=== PATIENT | female | born 1965 | race African-American/Black ===

== ENCOUNTER 2016-11-01 12:44 | Inpatient (IN) | payer MEDICAID ==
[2016-11-01] MEDS ORDERED: NS 1000 ML 1,000 ML ONE (12:51)
[2016-11-01 12:53] VITALS: BMI 23.9
--- NOTE | 2016-11-01 12:55 | DR.SEIZA ---
HPI - Time Seen Time seen: 12:47 - Primary Care Physician Primary Care Physician: Avril - Complaints Chief Complaint Doctors Comments: Patient was witnessed having a tonic clonic seizure lasting about five minutes. She was foaming at the mouth. There was no history of trauma or history of seizure. Patient is HIV positive by history . Patiente reports that she has had seizure in the the past but stopped taking medication becasue she did not think she needed it. PMH - PMH Past Medical History: Depression, GERD, Hypertension, PUD Past Surgical History: Yes Surgical History: Abdominal Surgery, - Family History Family Medical History: Diabetes Mellitus, Cancer, Hypertension - Social History Do you use any recreational Drugs:: No ROS - Review of Systems Constitutional: No Symptoms Reported Eyes: No Symptoms Reported ENTM: No Symptoms Reported Respiratoy: No Symptoms Reported Cardiovascular: No Symptoms Reported Gastrointestinal/Abdominal: No Symptoms Reported Genitourinary: No Symptoms Reported Neurological: No Symptoms Reported Musculoskeletal: No Symptoms Reported Integumentary: No Symptoms Reported, Dryness Hematologic/Lymphatic: No Symptoms Reported Endocrine: No Symptoms Reported Psychiatric: No Symptoms Reported All Other Systems: Reviewed and Negative PE - Vital Signs Vitals: Temperature 97.7 F Pulse Rate 129 Respiratory Rate 20 Blood Pressure 214/93 O2 Sat by Pulse Oximetry 99 - General Limitations: No Limitations General Appearance: In No Apparent Distress - Head Head Exam: Normal Inspection, Atraumatic Head Exam Physical: negative: Contusion, Conteh's Sign, Tenderness of Temporal Artery, CSF Rhinorrhea, CSF Otorrhea - Eyes Eye exam: Normal Appearance, PERRL, EOMI Eyelids: Normal Inspection: Bilateral Pupils: Regular, Round: Bilateral Sclera/Conjunctival: Normal Inspection: Bilateral Anterior Chamber: Normal Inspection: Bilateral - ENT ENT Exam: Normal Exam Mouth Exam: Normal Inspection. negative: Drooling, Trismus, Lip Swelling - Neck Neck Exam: Normal Inspection, Full ROM - Chest Chest Inspection: Normal Inspection - Respiratory Respiratory Exam: Normal Lung Sounds Bilat Respiratory Exam: Bilateral Clear to Auscultation - Cardiovascular Cardiovascular Exam: Regular Rate, Normal Rhythm - Abdominal Exam Abdominal Exam: Normal Inspection Abdominal Tenderness: negative: RUQ, RLQ, LUQ, LLQ, Epigastrium, Suprapubic, Diffuse, Mild, Moderate, Severe, Other - Extremities Extremities Exam: Normal Inspection, Full ROM - Back Back Exam: Normal Inspection - Neurologic Neurological Exam: Alert, Oriented X3, CN II-XII Intact Patient Oriented To: Place Speech: Expressive Aphasia Cranial Nerve Exam: EOM Function (II, III, IV, ): Normal Motor Strength - LUE: 2/5 Sensory Exam Upper Extremity: Light Touch: Normal Sensory Exam Lower Extremity: Light Touch: Normal DTR: achilles tendon (L): 3+ - Psychiatric Psychiatric Exam: Normal Affect, Normal Mood - Skin Skin Exam: Warm, Dry, Intact Course - Reevaluation 1st: Improved - Consultation Called: 14:05 (Dr Mackenzie advised admit seizure precaution, medicate) ROR - Labs Reviewed Laboratory Results Reviewed?: Yes (low potassium) Result Diagrams: 11/01/16 13:00 11/01/16 13:00 Laboratory: WBC 6.7 X10^3/uL (3.6-10.0) 11/01/16 13:00 RBC 4.46 X10^6/uL (3.5-5.4) 11/01/16 13:00 Hgb 8.4 g/dL (12.0-16.0) L 11/01/16 13:00 Hct 27.3 % (36.0-47.0) L 11/01/16 13:00 MCV 61.2 fL (80.0-100.0) L 11/01/16 13:00 MCH 18.7 pg (27.0-34.0) L 11/01/16 13:00 MCHC 30.6 g/dL (33.0-35.0) L 11/01/16 13:00 RDW 19.2 % (11.6-16.5) H 11/01/16 13:00 Plt Count 284 X10^3/uL (150.0-450.0) 11/01/16 13:00 Plt Count Comment Adequate (ADEQUATE) 11/01/16 13:00 MPV 10.8 fL (7.4-11.0) 11/01/16 13:00 Neut % 40.2 % (42.0-75.0) L 11/01/16 13:00 Lymph % 54.9 % (21.0-51.0) H 11/01/16 13:00 [place] % 2.7 % (0.0-13.0) 11/01/16 13:00 Eos % 0.5 % (0.9-2.9) L 11/01/16 13:00 Baso % 1.7 % (0.2-1.0) H 11/01/16 13:00 Neut # 2.7 x10^3/uL (2.2-4.8) 11/01/16 13:00 Lymph # 3.7 X10^3/uL (1.3-2.9) H 11/01/16 13:00 [place] # 0.2 x10^3/uL (0.3-0.8) L 11/01/16 13:00 Eos # 0.0 x10^3/uL (0.0-0.2) 11/01/16 13:00 Baso # 0.1 X10^3/uL (0.0-0.1) 11/01/16 13:00 Absolute Nucleated RBC 0.0 /100WBC 11/01/16 13:00 Total Counted 100 11/01/16 13:00 Neutrophils % (Manual) 59 % (39-76) 11/01/16 13:00 Lymphocytes % (Manual) 39 % (13-43) 11/01/16 13:00 Monocytes % (Manual) 2 % (4-9) L 11/01/16 13:00 Plt Morphology Comment Normal (NORMAL) 11/01/16 13:00 RBC Morphology Abnormal (NORMAL) A 11/01/16 13:00 Hypochromasia 3+ A 11/01/16 13:00 Microcytosis 2+ A 11/01/16 13:00 INR Target Range - 11/01/16 13:08 INR 1.04 (0.8-1.3) 11/01/16 13:08 PTT 25.0 SECONDS (22.9-36.5) 11/01/16 13:08 PTT Comment - 11/01/16 13:08 Sodium 140 mmol/L (136-145) 11/01/16 13:00 Corrected Sodium 142 mmol/L (136-145) 11/01/16 13:00 Potassium 3.0 mmol/L (3.5-5.1) L* 11/01/16 13:00 Chloride 102 mmol/L (98-107) 11/01/16 13:00 Carbon Dioxide 25.2 mmol/L (21-32) 11/01/16 13:00 BUN 14 mg/dL (7-18) 11/01/16 13:00 Creatinine 0.71 mg/dL (0.55-1.02) 11/01/16 13:00 Est GFR (MDRD) Af Amer > 60 (>60) 11/01/16 13:00 Est GFR (MDRD) Non-Af > 60 (>60) 11/01/16 13:00 Glucose 172 mg/dL (65-99) H 11/01/16 13:00 Calcium 8.9 mg/dL (8.5-10.1) 11/01/16 13:00 Corrected Calcium TNP 11/01/16 13:00 Phosphorus 3.6 mg/dL (2.6-4.7) 11/01/16 13:00 Magnesium 1.5 mg/dL (1.7-2.9) L 11/01/16 13:00 Total Bilirubin 0.10 mg/dL (0.2-1.0) L 11/01/16 13:00 AST 31 Units/L (15-37) 11/01/16 13:00 ALT 32 Units/L (12-78) 11/01/16 13:00 Alkaline Phosphatase 75 Units/L (46-116) 11/01/16 13:00 Creatine Kinase 640 Units/L (26-192) H 11/01/16 13:00 CK-MB (CK-2) 6.9 ng/mL (0-4.0) H* 11/01/16 13:00 CK/CKMB % Calc 1.1 % (<4) 11/01/16 13:00 Troponin I < 0.02 ng/mL (0-1.5) 11/01/16 13:00 C-Reactive Protein 1.70 mg/L (0-3.0) 11/01/16 13:00 Total Protein 8.2 g/dL (6.4-8.2) 11/01/16 13:00 Albumin 3.9 g/dL (3.4-5.0) 11/01/16 13:00 Globulin 4.3 g/dL (2.5-4.5) 11/01/16 13:00 Albumin/Globulin Ratio 0.9 Ratio (1.1-2.1) L 11/01/16 13:00 Specimen Type Clean catch urine 11/01/16 14:53 Urine Color Yellow (YELLOW) 11/01/16 14:53 Urine Appearance Clear (CLEAR) 11/01/16 14:53 Urine pH 6.0 (5.0 - 8.0) 11/01/16 14:53 Ur Specific [place] 1.020 (1.000-1.030) 11/01/16 14:53 Urine Protein 1+ (NEGATIVE) 11/01/16 14:53 Urine Glucose (UA) Negative (NEGATIVE) 11/01/16 14:53 Urine Ketones Negative (NEGATIVE) 11/01/16 14:53 Urine Occult Blood Negative (NEGATIVE) 11/01/16 14:53 Urine Nitrite Negative (NEGATIVE) 11/01/16 14:53 Urine Bilirubin Negative (NEGATIVE) 11/01/16 14:53 Urine Urobilinogen Normal (NORMAL) 11/01/16 14:53 Ur Leukocyte Esterase Negative (NEGATIVE) 11/01/16 14:53 Urine RBC None seen /HPF (NEGATIVE) 11/01/16 14:53 Urine WBC Rare /HPF (NEGATIVE) 11/01/16 14:53 Ur Squamous Epith Cells Negative /HPF (NEGATIVE) 11/01/16 14:53 Urine Bacteria Negative /HPF (NEGATIVE) 11/01/16 14:53 Ur Culture Indicated? No/not indicated 11/01/16 14:53 - XRAY XRAY Interpreted by: Radiologist (CT Brain: no evidence of pathology, x ray forearm negative, Chest negative) - Diagnosis Discharge Problem: Seizure disorder - Discharge Plan Condition: Stable - Follow ups/Referrals Follow ups/Referrals: [facility],None [Primary Care Provider] - 3 days - Instructions
[2016-11-01] MEDS ORDERED: NS 1000 ML 1,000 ML IV SCH (13:00)
--- NOTE | 2016-11-01 13:00 | CT ---
Indication: Seizures, stroke protocol Exam: CT head without contrast . Comparison: 2012 Findings: The ventricles are slightly enlarged and there is mild prominence of the cortical sulci. N o intracranial hemorrhage or edema is seen. There is no extra-axial fluid collection or mass. No foc al low-density lesions are seen. The bones are intact. Impression: Mild atrophy with no acute intracranial abnormality seen. Reported By:
[2016-11-01 13:17] LABS: BASOPHILS # (AUTO) 0.1 X10^3/uL (0.0-0.1); BASOPHILS % (AUTO) 1.7 % (0.2-1.0); MONOCYTES # (AUTO) 0.2 x10^3/uL (0.3-0.8)
[2016-11-01 13:23] LABS: MAGNESIUM 1.5 mg/dL (1.7-2.9); PHOSPHORUS 3.6 mg/dL (2.6-4.7)
[2016-11-01 13:25] LABS: EOSINOPHILS % (AUTO) 0.5 % (0.9-2.9); HEMATOCRIT 27.3 % (36.0-47.0); HEMOGLOBIN 8.4 g/dL (12.0-16.0); LYMPHOCYTES # (AUTO) 3.7 X10^3/uL (1.3-2.9); LYMPHOCYTES % (AUTO) 54.9 % (21.0-51.0); MEAN CORPUSCULAR HEMOGLOBIN 18.7 pg (27.0-34.0); MEAN CORPUSCULAR HGB CONC 30.6 g/dL (33.0-35.0); MEAN CORPUSCULAR VOLUME 61.2 fL (80.0-100.0); MEAN PLATELET VOLUME 10.8 fL (7.4-11.0); MONOCYTES % (AUTO) 2.7 % (0.0-13.0); NEUTROPHILS # (AUTO) 2.7 x10^3/uL (2.2-4.8); NEUTROPHILS % (AUTO) 40.2 % (42.0-75.0); PLATELET COUNT 284 X10^3/uL (150.0-450.0); RED BLOOD COUNT 4.46 X10^6/uL (3.5-5.4); RED CELL DISTRIBUTION WIDTH 19.2 % (11.6-16.5); WHITE BLOOD COUNT 6.7 X10^3/uL (3.6-10.0)
[2016-11-01 13:43] LABS: HYPOCHROMASIA 3+; MICROCYTOSIS 2+; PLATELET MORPHOLOGY COMMENT NORMAL (NORMAL)
--- NOTE | 2016-11-01 13:50 | RAD ---
HISTORY: Seizure. Study: Chest one view Comparison: October 14, 2016. Findings: The trachea is midline. The cardiac silhouette is unremarkable. The lungs are clear without focal infiltrate or effusion. The bony thorax is unremarkable. IMPRESSION: 1. No acute cardiopulmonary disease. Reported By:
[2016-11-01 14:00] LABS: ALANINE AMINOTRANSFERASE 32 Units/L (12-78); ALBUMIN 3.9 g/dL (3.4-5.0); ALKALINE PHOSPHATASE 75 Units/L (46-116); ASPARTATE AMINO TRANSFERASE 31 Units/L (15-37); BLOOD UREA NITROGEN 14 mg/dL (7-18); CALCIUM 8.9 mg/dL (8.5-10.1); CARBON DIOXIDE 25.2 mmol/L (21-32); CHLORIDE 102 mmol/L (98-107); CKMB % 1.1 % (<4); COR NA(FOR HYPERGLY) 142 mmol/L (136-145); CREATINE KINASE 640 Units/L (26-192); CREATININE 0.71 mg/dL (0.55-1.02); GLUCOSE 172 mg/dL (65-99); SODIUM 140 mmol/L (136-145); TOTAL PROTEIN 8.2 g/dL (6.4-8.2); TROPONIN I < 0.02 ng/mL (0-1.5); eGFR BLACK RACES > 60 (>60); eGFR NON BLACK RACES > 60 (>60)
[2016-11-01 14:05] LABS: CREATINE KINASE MB 6.9 ng/mL (0-4.0)
[2016-11-01] MEDS ORDERED: CEREBYX INJ IVP ONE (15:19)
[2016-11-01 15:28] LABS: BILIRUBIN,URINE NEGATIVE (NEGATIVE); BLOOD/HEMOGLOBIN,URINE NEGATIVE (NEGATIVE); GLUCOSE, URINE NEGATIVE (NEGATIVE); KETONES,URINE NEGATIVE (NEGATIVE); LEUKOCYTE ESTERASE ,URINE NEGATIVE (NEGATIVE); NITRITES,URINE NEGATIVE (NEGATIVE); PROTEIN,URINE 1+ (NEGATIVE); UROBILINOGEN,URINE NORMAL (NORMAL)
[2016-11-01 15:33] LABS: APPEARANCE,URINE CLEAR (CLEAR); COLOR,URINE YELLOW (YELLOW)
--- NOTE | 2016-11-01 15:34 | RAD ---
History: Right forearm pain after fall Study: Two views right forearm Findings: There is no fracture or dislocation or periosteum reaction. There is severe osteophytes ab out the 1st metacarpal-carpal joint. Impression: No evidence for fracture Reported By:
[2016-11-01 15:35] LABS: BACTERIA,URINE NEGATIVE /HPF (NEGATIVE); RBC,URINE NONE SEEN /HPF (NEGATIVE); SQUAMOUS EPITHELIAL CELL,UR NEGATIVE /HPF (NEGATIVE)
[2016-11-01] MEDS ORDERED: TORADOL 30 MG VIAL ONE (15:38)
[2016-11-01] MEDS ORDERED: CEREBYX INJ ONE ×2 (15:39)
[2016-11-01] MEDS ORDERED: NS 100 ML IV 100 ML IV ONE (15:40)
[2016-11-01] MEDS: K-LYTE EFFERVESCENT PO SCH (15:51)
[2016-11-01] MEDS ORDERED: TORADOL 30 MG VIAL IVP ONE (15:52)
[2016-11-01] MEDS ORDERED: ATIVAN INJ 2 MG VIAL IVP PRN (16:09)
[2016-11-01] MEDS: NS 1000 ML 1,000 ML with POTASSIUM CHLORIDE INJ 10 MEQ VIAL 10 MEQ IV SCH ×2 (16:51)
[2016-11-01] MEDS: NORCO 5/325 MG TAB PO PRN (19:11)
[2016-11-01] MEDS: KEPPRA TAB 500 MG PO SCH (20:30)
[2016-11-01] MEDS: DILANTIN CAP 100 MG EXT REL PO SCH (20:30)
[2016-11-02] MEDS: NS 1000 ML 1,000 ML with POTASSIUM CHLORIDE INJ 10 MEQ VIAL 10 MEQ IV SCH ×6 (01:00→16:02)
[2016-11-02] MEDS: NORCO 5/325 MG TAB PO PRN ×2 (01:00→18:38)
[2016-11-02 05:34] LABS: ALANINE AMINOTRANSFERASE 28 Units/L (12-78); ALKALINE PHOSPHATASE 63 Units/L (46-116); ASPARTATE AMINO TRANSFERASE 24 Units/L (15-37); BLOOD UREA NITROGEN 7 mg/dL (7-18); CALCIUM 8.1 mg/dL (8.5-10.1); CARBON DIOXIDE 26.3 mmol/L (21-32); CHLORIDE 108 mmol/L (98-107); COR CA(FOR HYPOALB) 8.9 mg/dL (8.5-10.1); CREATININE 0.51 mg/dL (0.55-1.02); GLUCOSE 98 mg/dL (65-99); SODIUM 144 mmol/L (136-145); TOTAL PROTEIN 6.6 g/dL (6.4-8.2); eGFR BLACK RACES > 60 (>60); eGFR NON BLACK RACES > 60 (>60)
[2016-11-02 05:42] LABS: BASOPHILS % (AUTO) 0.5 % (0.2-1.0); EOSINOPHILS # (AUTO) 0.1 x10^3/uL (0.0-0.2); EOSINOPHILS % (AUTO) 0.6 % (0.9-2.9); HEMOGLOBIN 7.1 g/dL (12.0-16.0); LYMPHOCYTES # (AUTO) 2.1 X10^3/uL (1.3-2.9); LYMPHOCYTES % (AUTO) 23.1 % (21.0-51.0); MEAN CORPUSCULAR HEMOGLOBIN 19.3 pg (27.0-34.0); MEAN CORPUSCULAR HGB CONC 30.9 g/dL (33.0-35.0); MEAN CORPUSCULAR VOLUME 62.4 fL (80.0-100.0); MEAN PLATELET VOLUME 10.7 fL (7.4-11.0); MONOCYTES # (AUTO) 0.4 x10^3/uL (0.3-0.8); NEUTROPHILS # (AUTO) 6.3 x10^3/uL (2.2-4.8); NEUTROPHILS % (AUTO) 70.8 % (42.0-75.0); PLATELET COUNT 222 X10^3/uL (150.0-450.0); RED BLOOD COUNT 3.68 X10^6/uL (3.5-5.4); RED CELL DISTRIBUTION WIDTH 18.8 % (11.6-16.5); WHITE BLOOD COUNT 8.9 X10^3/uL (3.6-10.0)
[2016-11-02 05:59] LABS: ANISOCYTOSIS 1+; HYPOCHROMASIA 3+; MICROCYTOSIS 2+; PLATELET MORPHOLOGY COMMENT NORMAL (NORMAL)
[2016-11-02] MEDS ORDERED: TYLENOL 325 MG TAB PO PRN (09:05)
[2016-11-02] MEDS ORDERED: BENADRYL INJ 50 MG VIAL IV PRN (09:06)
[2016-11-02] MEDS: KEPPRA TAB 500 MG PO SCH ×2 (10:43→20:47)
[2016-11-02] MEDS: K-LYTE EFFERVESCENT PO SCH (10:43)
[2016-11-02] MEDS ORDERED: NS 500 ML IV 500 ML IV ONE (15:05)
[2016-11-02] MEDS: LASIX IVP PRN ×2 (18:38→22:34)
[2016-11-02] MEDS: DILANTIN CAP 100 MG EXT REL PO SCH (20:47)
[2016-11-03] MEDS ORDERED: NS 500 ML IV 500 ML IV ONE (00:13)
[2016-11-03] MEDS: NS 1000 ML 1,000 ML with POTASSIUM CHLORIDE INJ 10 MEQ VIAL 10 MEQ IV SCH ×6 (00:29→16:46)
[2016-11-03 05:21] LABS: BLOOD UREA NITROGEN 8 mg/dL (7-18); CALCIUM 8.3 mg/dL (8.5-10.1); CARBON DIOXIDE 29.7 mmol/L (21-32); CHLORIDE 105 mmol/L (98-107); CREATININE 0.62 mg/dL (0.55-1.02); GLUCOSE 94 mg/dL (65-99); SODIUM 145 mmol/L (136-145); eGFR BLACK RACES > 60 (>60); eGFR NON BLACK RACES > 60 (>60)
[2016-11-03 05:29] LABS: BASOPHILS % (AUTO) 0.4 % (0.2-1.0); EOSINOPHILS # (AUTO) 0.1 x10^3/uL (0.0-0.2); EOSINOPHILS % (AUTO) 1.2 % (0.9-2.9); HEMATOCRIT 39.7 % (36.0-47.0); LYMPHOCYTES # (AUTO) 2.6 X10^3/uL (1.3-2.9); MEAN CORPUSCULAR HEMOGLOBIN 22.8 pg (27.0-34.0); MEAN CORPUSCULAR HGB CONC 32.6 g/dL (33.0-35.0); MEAN CORPUSCULAR VOLUME 69.7 fL (80.0-100.0); MEAN PLATELET VOLUME 10.3 fL (7.4-11.0); MONOCYTES # (AUTO) 0.5 x10^3/uL (0.3-0.8); MONOCYTES % (AUTO) 5.6 % (0.0-13.0); NEUTROPHILS # (AUTO) 5.4 x10^3/uL (2.2-4.8); NEUTROPHILS % (AUTO) 62.8 % (42.0-75.0); PLATELET COUNT 225 X10^3/uL (150.0-450.0); WHITE BLOOD COUNT 8.7 X10^3/uL (3.6-10.0)
[2016-11-03 05:57] LABS: PLATELET MORPHOLOGY COMMENT NORMAL (NORMAL)
[2016-11-03 05:58] LABS: ANISOCYTOSIS 3+; HYPOCHROMASIA 2+; MICROCYTOSIS 1+
[2016-11-03] MEDS: K-LYTE EFFERVESCENT PO SCH (08:17)
[2016-11-03] MEDS: KEPPRA TAB 500 MG PO SCH (08:18)
--- NOTE | 2016-11-03 13:02 | MRI ---
STUDY: MRI OF THE BRAIN WITHOUT AND WITH GADOLINIUM HISTORY: New onset seizures. Technique: Multiplanar multi-sequence MRI of the brain was obtained utilizing standard departmental protocol. Sagittal and axial T1, axial T2, FLAIR, diffusion (DWI/ADC) images through the brain were performed. Coronal whole brain T1, coronal T2 FLAIR and T2 FSE images the temporal lobes were also p erformed. 12 cc of Omniscan was administered intravenously without reported complication following acquisition of informed written consent. Post gadolinium axial and coronal T1 weighted images were also perform ed and reviewed. Comparison: None. Findings: Pre gadolinium brain: The sulci, cisterns and ventricles are age appropriate. There are a few scatte red foci of T2 prolongation in the periventricular and subcortical white matter of both hemispheres. This is a nonspecific finding which likely represents mild microangiopathic change in a patient of this age. There is no evidence of acute territorial infarction, hemorrhage, mass, mass effect, or midline shif t. There are no abnormal intra-axial or extra-axial fluid collections. The hippocampal heads are nor mal in size, morphology, and signal intensity. There is no evidence of chapin matter heterotopia or co rtical dysplasia. The major intracranial vascular flow voids appear intact. The left vertebral artery is dominant. Post gadolinium brain: Following the uneventful administration of intravenous gadolinium, there is n o evidence of abnormal parenchymal or leptomeningeal enhancement. IMPRESSION: 1. No evidence of acute intracranial abnormality. No structural abnormalities are identified which might explain the patient's seizure. 2. Nonspecific white matter change. Reported By:
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
[2016-11-03 16:59] VITALS: BP 146/76
== END 2016-11-03 17:15 | disposition home or self-care (01) | DRG 100 ==
LOC: ER 12:47 → MED/SURG 16:00 → OBSVTOIN 11-02 09:00
PROVIDERS: ADMIT Internal Medicine; ATTEND Internal Medicine
PROC: 30233N1 Transfusion of Nonautologous Red Blood Cells into Peripheral Vein, Percutaneous Approach (ICD-10-PCS; principal; 2016-11-02)
PROC: 30233N1 Transfusion of Nonautologous Red Blood Cells into Peripheral Vein, Percutaneous Approach (ICD-10-PCS; 2016-11-02)
PROC: 30233N1 Transfusion of Nonautologous Red Blood Cells into Peripheral Vein, Percutaneous Approach (ICD-10-PCS; 2016-11-03)
DX: G40.802 Other epilepsy, not intractable, without status epilepticus (principal); B20 Human immunodeficiency virus [HIV] disease; K21.9 Gastro-esophageal reflux disease without esophagitis; I10 Essential (primary) hypertension; R47.01 Aphasia; Z21 Asymptomatic human immunodeficiency virus [HIV] infection status; D63.8 Anemia in other chronic diseases classified elsewhere; F32.89 Other specified depressive episodes
CPT/HCPCS: 36415; 70450; 70553; 71010; 73090; 80048; 80053; 81001; 82270; 82550; 82553; 82607; 82728; 82746; 83540; 83735; 84100; 84466; 84484; 85025; 85610; 85730; 86140; 86361; 86850; 86900; 86901; 86920; 86921; 86922; 87536; 93005; 93010; 94760; 96365; 96367; 96374; 96375; 99284; A4216; A4222; P9016; Q2009; S0078; G0378; J1200; J1885; J1940; J3480

== ENCOUNTER → 2016-12-21 | Outpatient (CLI) | payer MEDICAID | LOC: RT 13:10 | PROVIDERS: ATTEND Nurse Practitioner | DX: R56.9 Unspecified convulsions (principal) | CPT/HCPCS: 95819 ==

== ENCOUNTER 2017-03-11 02:45 | Emergency (ER) | payer MEDICAID ==
[2017-03-11 02:59] VITALS: BP 173/96; BMI 16.2
[2017-03-11] MEDS ORDERED: SOLU-Medrol 125 MG VIAL IVP ONE ×2 (03:20→03:22)
[2017-03-11] MEDS ORDERED: PEPCID 20 MG IV PREMIX* 20 MG/50 ML BAG IV ONE ×2 (03:23→03:24)
[2017-03-11] MEDS ORDERED: BENADRYL INJ 50 MG VIAL IVP STA (03:23)
[2017-03-11] MEDS ORDERED: BENADRYL INJ 50 MG VIAL ONE (03:24)
[2017-03-11] MEDS ORDERED: SOLU-Medrol 125 MG VIAL ONE (03:25)
--- NOTE | 2017-03-11 03:28 | DR.GENAD ---
HPI - PCP Primary Care Physician: NFD - Complaint/Symptoms Chief Complaint Doctors Comments: Patient complains of itching, arms, hand, face with swelling of her face and hands this evening getting worst the last 1- 2 hours. States he sister brought her some shrimps tonight around 8 pm and she started itching and feeling like her voice was hoarse. She denies cold, cough, fever or chills but complains of SOB. She denies wheezing, chest pain or any recent trauma. States she has had shrimps before. States she has not had any thing else to eat. Chief Complaint:: "I have been swelling and itching on my arms and my face. My throat feels a little swollen as well." Self Treatment fo Chief Complaint: Patient states that the only thing different that she has eaten was shrimp. She said that she has eaten it before and it has not done this to her. She states that she has taken benadryl tonight and it did not help. Patient also states that she is HIV positive and has been taking medication for it. - Nurses notes reviewed Nurses Notes Review: Yes - Source History Provided: Patient - Mode of Arrival Mode of Arrival: Ambulatory - Timing Onset of Chief Complaint: 03/11/17 Came on: Suddenly - Duration Duration: Constant How lon Duration: Hours - Location Location: itching all over - Severity Severity: Moderate - Modifying Factors Worsens:: nothing Improves:: nothing PMH - PMH Past Medical History: Yes Past Medical History: Depression, GERD, Hypertension, PUD, Seizures Past Medical History Comment: HIV Past Surgical History: Yes Surgical History: Abdominal Surgery, , Other - Family History History of Family Medical Conditions: Yes Family Medical History: Diabetes Mellitus, Cancer, Hypertension - Social History Does patient currently use any type of tobacco product: No Have you used tobacco products in the last 12 months: No Type of Tobacco Use: None Does any household member use tobacco: Yes Alcohol Use: None Do you use any recreational Drugs:: No Lives With: Family Lives Where: Home - infectious screening In the last 2 months have you had wt loss of >10#?: YES Have you had fever, night sweats or hemotysis?: No Have you traveled outside the country in the last 6 months?: No Isolation: Standard ROS - Review of Systems Constitutional: No Symptoms Reported. negative: See HPI, Chills, Diaphoresis, Fever, Malaise, Weakness, Irritable, Fatigue, Loss of Appetite, Other Eyes: No Symptoms Reported ENTM: No Symptoms Reported, Nose Congestion, Mouth Swelling Respiratoy: No Symptoms Reported, Short of Breath. negative: See HPI, Productive Cough, Non-Productive Cough, Moist Cough, Dry Cough, Hacking Cough, Barking Cough, Brassy Cough, Orthopnea, Stridor, Wheezing, Hemoptysis, Other Cardiovascular: No Symptoms Reported. negative: See HPI, Chest Pain, Edema, Palpitations, Syncope, Cyanosis, Skin Mottling, Other Gastrointestinal/Abdominal: No Symptoms Reported. negative: See HPI, Abdominal Pain, Constipation, Diarrhea, Nausea, Vomiting, Food Intolerance, Other Genitourinary: No Symptoms Reported Neurological: No Symptoms Reported, Speech Problem. negative: See HPI, Anxiety , Depressed, Emotional Problems, Headache, Numbness, Paresthesia, Pre-existing Deficit, Seizure, Tingling, Tremors, Weakness, Dizziness, Problems Walking, Other Musculoskeletal: No Symptoms Reported, Right (itching with macular rash), Left, Chest wall, Arm, Forearm, Hand Integumentary: Rash (red macular rash with whelps on hand, arms) Hematologic/Lymphatic: No Symptoms Reported. negative: See HPI, Anemia, Blood Clots, Easy Bleeding, Easy Bruising, Swollen Glands, Lymphadenopathy, Other Endocrine: No Symptoms Reported. negative: See HPI, Excessive Sweating, Flushing, Intolerance to Cold, Intolerance to Heat, Increased Hunger, Increased Thirst, Increased Urine, Unexplained Weight Gain, Unexplained Weight Loss, Failure to Thrive, Decreased Appetite, Other Psychiatric: No Symptoms Reported. negative: See HPI, Anxiety, Depression, Hallucinations, Excessive crying, Suicidal, Other PE - Vital Signs Vitals: Temperature 98.5 F Pulse Rate 125 Respiratory Rate 15 Blood Pressure [Left Arm] 139/82 Blood Pressure [Right Arm] 146/76 Blood Pressure 173/96 O2 Sat by Pulse Oximetry 100 - General Limitations: No Limitations General Appearance: Alert, In Distress (mild to moderate). negative: In No Apparent Distress, Appears Intoxicated, Anxious, Lethargic, Obtunded, Obese, Cachectic, Other - Head Head Exam: Normal Inspection, Atraumatic, Normocephalic - Eyes Eye exam: Normal Appearance, PERRL, EOMI. negative: Scleral Icterus, Conjunctival Injection, Nystagmus, Miosis, Mydrasis, Periorbital Swelling, Periorbital Tenderness, Other - ENT ENT Exam: Normal Exam, Normal Oropharynx, Normal External Ear Exam, Mucous Membranes Moist, TM's Normal Bilaterally External Ear Exam: Normal External Inspection TM/Canal Exam: Bilateral Normal Nose Exam: Normal Nose Exam Mouth Exam: Normal Inspection Throat Exam: Normal Inspection. negative: Tonsillar Erythema, Tonsillomegaly, Tonsillar Exudate, R Peritonsillar Mass, L Peritonsillar Mass, Muffled Voice, Other - Neck Neck Exam: Normal Inspection, Full ROM, Trachea Midline. negative: Tenderness, Meningismus, Lymphadenopathy, Thyromegaly, Other - Chest Chest Inspection: Normal Inspection, Symmetric Chest Wall Rise - Respiratory Respiratory Exam: Normal Lung Sounds Bilat Respiratory Exam: Bilateral Clear to Auscultation - Cardiovascular Cardiovascular Exam: Regular Rate, Normal Rhythm, Normal Heart Sounds - Abdominal Exam Abdominal Exam: Normal Inspection, Normal Bowel Sounds, Soft. negative: Distention, Tenderness, Guarding, Rebound, Rigidity, Dimnished Bowel Sounds, Hyperactive Bowel Sounds, Hypoactive Bowel Sounds, Organomegaly, Trauma, Incision, Ascites, Mass, Bruit, Pulsatile Mass, Hernia, Other Abdominal Tenderness: negative: RUQ, RLQ, LUQ, LLQ, Epigastrium, Suprapubic, Diffuse, Mild, Moderate, Severe, Other - Extremities Extremities Exam: Normal Inspection, Full ROM, Normal Capillary Refill (arms with erythematous macular rash with few hives). negative: Tenderness, Edema, Joint Swelling, Calf Tenderness, Other - Back Back Exam: Normal Inspection, Full ROM. negative: Tenderness, (R) CVA Tenderness, (L) CVA Tenderness, Muscle Spasm, Paraspinal Tenderness, Vertebral Tenderness, Rashes, (R) Sciatic Notch Tenderness, (L) Sciatic Notch Tendern, (R ) Straight Leg Raise, (L) Straight Leg Raise, Other - Neurologic Neurological Exam: Alert, Oriented X3, CN II-XII Intact, Normal Gait, Reflexes Normal - Psychiatric Psychiatric Exam: Normal Affect, Normal Mood, Anxious. negative: Depressed, Agitated, Flat Affect, Manic, Homicidal Ideation, Suicidal Ideation, Other - Skin Skin Exam: Warm, Dry, Intact, Normal Color, Rash (arms, hands chest with erythema, hives; healed excoriated papules diffusely), Erythema Course - Reevaluation 1st: Improved - Education/Counseling Education/Counseling: Patient, Family Educated On: Treatment, Diagnosis, Prognosis, Needs for Follow Up ROR - Labs Reviewed Laboratory Results Reviewed?: Yes (all labs and x-ray results reviewed and discussed with patient) Result Diagrams: 03/11/17 03:30 03/11/17 03:30 Laboratory: WBC 9.8 X10^3/uL (3.6-10.0) 03/11/17 03:30 RBC 5.68 X10^6/uL (3.5-5.4) H 03/11/17 03:30 Hgb 13.3 g/dL (12.0-16.0) 03/11/17 03:30 Hct 41.0 % (36.0-47.0) 03/11/17 03:30 MCV 72.3 fL (80.0-100.0) L 03/11/17 03:30 MCH 23.4 pg (27.0-34.0) L 03/11/17 03:30 MCHC 32.4 g/dL (33.0-35.0) L 03/11/17 03:30 RDW 15.4 % (11.6-16.5) 03/11/17 03:30 Plt Count 235 X10^3/uL (150.0-450.0) 03/11/17 03:30 MPV 10.1 fL (7.4-11.0) 03/11/17 03:30 Neut % 78.6 % (42.0-75.0) H 03/11/17 03:30 Lymph % 17.6 % (21.0-51.0) L 03/11/17 03:30 [place] % 3.1 % (0.0-13.0) 03/11/17 03:30 Eos % 0.6 % (0.9-2.9) L 03/11/17 03:30 Baso % 0.1 % (0.2-1.0) L 03/11/17 03:30 Neut # 7.7 x10^3/uL (2.2-4.8) H 03/11/17 03:30 Lymph # 1.7 X10^3/uL (1.3-2.9) 03/11/17 03:30 [place] # 0.3 x10^3/uL (0.3-0.8) 03/11/17 03:30 Eos # 0.1 x10^3/uL (0.0-0.2) 03/11/17 03:30 Baso # 0.0 X10^3/uL (0.0-0.1) 03/11/17 03:30 Absolute Nucleated RBC 0.0 /100WBC 03/11/17 03:30 Sodium 139 mmol/L (136-145) 03/11/17 03:30 Corrected Sodium TNP 03/11/17 03:30 Potassium 4.1 mmol/L (3.5-5.1) 03/11/17 03:30 Chloride 103 mmol/L (98-107) 03/11/17 03:30 Carbon Dioxide 24.9 mmol/L (21-32) 03/11/17 03:30 BUN 17 mg/dL (7-18) 03/11/17 03:30 Creatinine 0.66 mg/dL (0.55-1.02) 03/11/17 03:30 Est GFR (MDRD) Af Amer > 60 (>60) 03/11/17 03:30 Est GFR (MDRD) Non-Af > 60 (>60) 03/11/17 03:30 Glucose 110 mg/dL (65-99) H 03/11/17 03:30 Calcium 8.8 mg/dL (8.5-10.1) 03/11/17 03:30 Corrected Calcium TNP 03/11/17 03:30 Total Bilirubin 0.30 mg/dL (0.2-1.0) 03/11/17 03:30 AST 36 Units/L (15-37) 03/11/17 03:30 ALT 23 Units/L (12-78) 03/11/17 03:30 Alkaline Phosphatase 88 Units/L (46-116) 03/11/17 03:30 Total Protein 7.9 g/dL (6.4-8.2) 03/11/17 03:30 Albumin 4.0 g/dL (3.4-5.0) 03/11/17 03:30 Globulin 3.9 g/dL (2.5-4.5) 03/11/17 03:30 Albumin/Globulin Ratio 1.0 Ratio (1.1-2.1) L 03/11/17 03:30 HCG, Qual Negative <10 mIU/mL 03/11/17 03:30 - XRAY XRAY Interpreted by: Radiologist (CXR: Normal chest x-ray) - Diagnosis Discharge Problem: Urticaria due to food allergy, Hyperglycemia Allergic reaction Qualifiers: Encounter type: initial encounter Qualified Code(s): T78.40XA - Allergy, unspecified, initial encounter - Discharge Plan Disposition: HOME, SELF-CARE Condition: Stable Prescriptions: Diphenhydramine HCl [BENADRYL 50 MG CAP *] 50 mg PO Q8H #30 cap Hydroxyzine HCl 10 mg Tab [ATARAX *] 10 mg PO TID #30 tab Loratadine [Claritin] 10 mg PO DAILY #30 tab Ranitidine HCl [ZANTAC TAB 150 MG *] 150 mg PO BID #60 tab - Follow ups/Referrals Follow ups/Referrals: NFD,None [Primary Care Provider] - 3 days TONY GARCIA [STAFF PHYSICIAN] - 3 days - Instructions Instructions: Hives, Food Allergy, [id number], Allergies
[2017-03-11 03:47] LABS: BASOPHILS % (AUTO) 0.1 % (0.2-1.0); EOSINOPHILS # (AUTO) 0.1 x10^3/uL (0.0-0.2); EOSINOPHILS % (AUTO) 0.6 % (0.9-2.9); HEMOGLOBIN 13.3 g/dL (12.0-16.0); LYMPHOCYTES # (AUTO) 1.7 X10^3/uL (1.3-2.9); LYMPHOCYTES % (AUTO) 17.6 % (21.0-51.0); MEAN CORPUSCULAR HEMOGLOBIN 23.4 pg (27.0-34.0); MEAN CORPUSCULAR HGB CONC 32.4 g/dL (33.0-35.0); MEAN CORPUSCULAR VOLUME 72.3 fL (80.0-100.0); MEAN PLATELET VOLUME 10.1 fL (7.4-11.0); MONOCYTES # (AUTO) 0.3 x10^3/uL (0.3-0.8); MONOCYTES % (AUTO) 3.1 % (0.0-13.0); NEUTROPHILS # (AUTO) 7.7 x10^3/uL (2.2-4.8); NEUTROPHILS % (AUTO) 78.6 % (42.0-75.0); PLATELET COUNT 235 X10^3/uL (150.0-450.0); RED BLOOD COUNT 5.68 X10^6/uL (3.5-5.4); RED CELL DISTRIBUTION WIDTH 15.4 % (11.6-16.5); WHITE BLOOD COUNT 9.8 X10^3/uL (3.6-10.0)
[2017-03-11 03:57] LABS: ALANINE AMINOTRANSFERASE 23 Units/L (12-78); ALKALINE PHOSPHATASE 88 Units/L (46-116); ASPARTATE AMINO TRANSFERASE 36 Units/L (15-37); BLOOD UREA NITROGEN 17 mg/dL (7-18); CALCIUM 8.8 mg/dL (8.5-10.1); CARBON DIOXIDE 24.9 mmol/L (21-32); CHLORIDE 103 mmol/L (98-107); CREATININE 0.66 mg/dL (0.55-1.02); GLUCOSE 110 mg/dL (65-99); SODIUM 139 mmol/L (136-145); TOTAL PROTEIN 7.9 g/dL (6.4-8.2); eGFR BLACK RACES > 60 (>60); eGFR NON BLACK RACES > 60 (>60)
--- NOTE | 2017-03-11 04:05 | RAD ---
EXAM: Chest X-ray INDICATION: Allergic reaction COMPARISION: Prior exam November 01, 2016 TECHNIQUE: AP, single view FINDINGS: The lungs are clear in the lung volumes are within normal limits. No pleural effusion or pneumothora x. The cardiac silhouette and mediastinum are normal. The regional skeleton is intact. IMPRESSION: Normal Chest X-Ray Reported By:
[2017-03-11 04:23] LABS: SERUM PREGNANCY TEST, QUAL NEGATIVE <10 mIU/mL
[2017-03-11 04:34] LABS: HYPOCHROMASIA 1+; PLATELET MORPHOLOGY COMMENT NORMAL (NORMAL)
== END 2017-03-11 04:58 | disposition home or self-care (01) ==
LOC: ER 02:45
DX: T78.49XA Other allergy, initial encounter (principal); L50.0 Allergic urticaria; R73.9 Hyperglycemia, unspecified
CPT/HCPCS: 36415; 71010; 80053; 84703; 85025; 96365; 96367; 96374; 96375; 99283; A4222; S0028; J1200; J2930

== ENCOUNTER 2017-05-31 19:01 | Emergency (ER) | payer MEDICAID ==
[2017-05-31 19:11] VITALS: BMI 16.6
--- NOTE | 2017-05-31 19:54 | DR.GENAD ---
HPI - PCP Primary Care Physician: sincere - Complaint/Symptoms Chief Complaint:: pt c/o weakness and not being able to eat chest back and generalized pain pt states" i can't hardly see and my foot is hurting" - Source History Provided: Patient - Mode of Arrival Mode of Arrival: Ambulatory - Timing Onset of Chief Complaint: 05/10/17 PMH - PMH Past Medical History: Yes Past Medical History: Depression, GERD, Hypertension, PUD, Seizures Past Medical History Comment: HIV POSITIVE Past Surgical History: Yes Surgical History: Abdominal Surgery, , Other - Family History History of Family Medical Conditions: Yes Family Medical History: Diabetes Mellitus, Cancer, Hypertension - Social History Does any household member use tobacco: No Do you use any recreational Drugs:: No Lives With: Family Lives Where: Home - infectious screening In the last 2 months have you had wt loss of >10#?: NO Have you had fever, night sweats or hemotysis?: No Have you traveled outside the country in the last 6 months?: No Isolation: Standard ROS - Review of Systems Eyes: No Symptoms Reported ENTM: No Symptoms Reported Respiratoy: No Symptoms Reported Cardiovascular: No Symptoms Reported Gastrointestinal/Abdominal: No Symptoms Reported Genitourinary: No Symptoms Reported Neurological: No Symptoms Reported Musculoskeletal: No Symptoms Reported Integumentary: No Symptoms Reported Hematologic/Lymphatic: No Symptoms Reported Endocrine: No Symptoms Reported Psychiatric: No Symptoms Reported All Other Systems: Reviewed and Negative PE - Vital Signs Vitals: Temperature 98.6 F Pulse Rate 82 Respiratory Rate 18 Blood Pressure [Left Arm] 139/82 Blood Pressure [Right Arm] 146/76 Blood Pressure 130/70 O2 Sat by Pulse Oximetry 100 - General General Appearance: Alert, In No Apparent Distress - Head Head Exam: Normal Inspection, Atraumatic - Eyes Eye exam: Normal Appearance, PERRL, EOMI - ENT ENT Exam: Normal Exam External Ear Exam: Normal External Inspection TM/Canal Exam: Bilateral Normal Nose Exam: Normal Nose Exam Mouth Exam: Normal Inspection Throat Exam: Normal Inspection - Neck Neck Exam: Normal Inspection - Chest Chest Inspection: Normal Inspection - Respiratory Respiratory Exam: Normal Lung Sounds Bilat Respiratory Exam: Bilateral Clear to Auscultation - Cardiovascular Cardiovascular Exam: Regular Rate, Normal Rhythm - Abdominal Exam Abdominal Exam: Normal Inspection Abdominal Tenderness: negative: RUQ, RLQ, LUQ, LLQ, Epigastrium, Suprapubic, Diffuse, Mild, Moderate, Severe, Other - Extremities Extremities Exam: Normal Inspection, Full ROM - Back Back Exam: Normal Inspection, Full ROM - Neurologic Neurological Exam: Alert, Oriented X3 - Psychiatric Psychiatric Exam: Normal Affect - Skin Skin Exam: Warm, Dry, Intact, Normal Color ROR - Labs Reviewed Result Diagrams: 05/31/17 20:10 05/31/17 20:10 Laboratory: WBC 5.0 X10^3/uL (3.6-10.0) 05/31/17 20:10 RBC 4.82 X10^6/uL (3.5-5.4) 05/31/17 20:10 Hgb 11.0 g/dL (12.0-16.0) L 05/31/17 20:10 Hct 33.9 % (36.0-47.0) L 05/31/17 20:10 MCV 70.4 fL (80.0-100.0) L 05/31/17 20:10 MCH 22.7 pg (27.0-34.0) L 05/31/17 20:10 MCHC 32.3 g/dL (33.0-35.0) L 05/31/17 20:10 RDW 14.7 % (11.6-16.5) 05/31/17 20:10 Plt Count 279 X10^3/uL (150.0-450.0) 05/31/17 20:10 Plt Count Comment Adequate (ADEQUATE) 05/31/17 20:10 MPV 9.8 fL (7.4-11.0) 05/31/17 20:10 Neut % 48.3 % (42.0-75.0) 05/31/17 20:10 Lymph % 37.8 % (21.0-51.0) 05/31/17 20:10 [place] % 12.0 % (0.0-13.0) 05/31/17 20:10 Eos % 0.8 % (0.9-2.9) L 05/31/17 20:10 Baso % 1.1 % (0.2-1.0) H 05/31/17 20:10 Neut # 2.4 x10^3/uL (2.2-4.8) 05/31/17 20:10 Lymph # 1.9 X10^3/uL (1.3-2.9) 05/31/17 20:10 [place] # 0.6 x10^3/uL (0.3-0.8) 05/31/17 20:10 Eos # 0.0 x10^3/uL (0.0-0.2) 05/31/17 20:10 Baso # 0.1 X10^3/uL (0.0-0.1) 05/31/17 20:10 Absolute Nucleated RBC 0.2 /100WBC 05/31/17 20:10 Plt Morphology Comment Normal (NORMAL) 05/31/17 20:10 RBC Morphology Abnormal (NORMAL) A 05/31/17 20:10 Hypochromasia 1+ A 05/31/17 20:10 Microcytosis Slight A 05/31/17 20:10 Sodium 143 mmol/L (136-145) 05/31/17 20:10 Corrected Sodium TNP 05/31/17 20:10 Potassium 3.9 mmol/L (3.5-5.1) 05/31/17 20:10 Chloride 108 mmol/L (98-107) H 05/31/17 20:10 Carbon Dioxide 31.5 mmol/L (21-32) 05/31/17 20:10 BUN 8 mg/dL (7-18) 05/31/17 20:10 Creatinine 0.63 mg/dL (0.55-1.02) 05/31/17 20:10 Est GFR (MDRD) Af Amer > 60 (>60) 05/31/17 20:10 Est GFR (MDRD) Non-Af > 60 (>60) 05/31/17 20:10 Glucose 106 mg/dL (65-99) H 05/31/17 20:10 Calcium 8.7 mg/dL (8.5-10.1) 05/31/17 20:10 - XRAY XRAY Interpreted by: Radiologist (Chest: No acute process) - Diagnosis Discharge Problem: Weakness, HIV disease - Discharge Plan Condition: Stable - Follow ups/Referrals Follow ups/Referrals: NFD,None [Primary Care Provider] - 3 days - Instructions
[2017-05-31] MEDS ORDERED: NS 1000 ML 1,000 ML IV ONE (19:55)
[2017-05-31] MEDS ORDERED: NS 1000 ML 1,000 ML ONE (20:03)
[2017-05-31 20:23] LABS: BASOPHILS # (AUTO) 0.1 X10^3/uL (0.0-0.1); BASOPHILS % (AUTO) 1.1 % (0.2-1.0); EOSINOPHILS % (AUTO) 0.8 % (0.9-2.9); HEMATOCRIT 33.9 % (36.0-47.0); LYMPHOCYTES # (AUTO) 1.9 X10^3/uL (1.3-2.9); LYMPHOCYTES % (AUTO) 37.8 % (21.0-51.0); MEAN CORPUSCULAR HEMOGLOBIN 22.7 pg (27.0-34.0); MEAN CORPUSCULAR HGB CONC 32.3 g/dL (33.0-35.0); MEAN CORPUSCULAR VOLUME 70.4 fL (80.0-100.0); MEAN PLATELET VOLUME 9.8 fL (7.4-11.0); MONOCYTES # (AUTO) 0.6 x10^3/uL (0.3-0.8); NEUTROPHILS # (AUTO) 2.4 x10^3/uL (2.2-4.8); NEUTROPHILS % (AUTO) 48.3 % (42.0-75.0); PLATELET COUNT 279 X10^3/uL (150.0-450.0); RED BLOOD COUNT 4.82 X10^6/uL (3.5-5.4); RED CELL DISTRIBUTION WIDTH 14.7 % (11.6-16.5)
[2017-05-31 20:30] LABS: BLOOD UREA NITROGEN 8 mg/dL (7-18); CALCIUM 8.7 mg/dL (8.5-10.1); CARBON DIOXIDE 31.5 mmol/L (21-32); CHLORIDE 108 mmol/L (98-107); CREATININE 0.63 mg/dL (0.55-1.02); SODIUM 143 mmol/L (136-145); eGFR BLACK RACES > 60 (>60); eGFR NON BLACK RACES > 60 (>60)
[2017-05-31 20:49] LABS: HYPOCHROMASIA 1+; PLATELET MORPHOLOGY COMMENT NORMAL (NORMAL)
[2017-05-31 20:51] LABS: MICROCYTOSIS SLIGHT
--- NOTE | 2017-05-31 20:59 | RAD ---
HISTORY: Weakness, chest pain Study: Single view chest Comparison: 03/11/2017 Findings: The lungs are clear without consolidation, effusion or pneumothorax. The cardiac and mediastinal con tours are within normal limits. The soft tissues are unremarkable. There are surgical clips seen in the left axilla. IMPRESSION: 1. No acute cardiopulmonary abnormality. Reported By:
[2017-05-31 22:10] VITALS: BP 122/68
== END 2017-05-31 22:05 | disposition home or self-care (01) ==
LOC: ER 19:18
DX: B20 Human immunodeficiency virus [HIV] disease (principal); R53.1 Weakness
CPT/HCPCS: 36415; 71010; 80048; 85025; 96365; 99283; A4222

== ENCOUNTER 2017-11-09 21:20 | Emergency (ER) | payer MEDICAID ==
[2017-11-09 21:29] VITALS: BMI 18.7
[2017-11-09 21:31] VITALS: BP 126/62
[2017-11-09 22:00] LABS: BILIRUBIN,URINE NEGATIVE (NEGATIVE); BLOOD/HEMOGLOBIN,URINE 1+ (NEGATIVE); GLUCOSE, URINE NEGATIVE (NEGATIVE); KETONES,URINE NEGATIVE (NEGATIVE); LEUKOCYTE ESTERASE ,URINE 2+ (NEGATIVE); NITRITES,URINE NEGATIVE (NEGATIVE); PROTEIN,URINE NEGATIVE (NEGATIVE); UROBILINOGEN,URINE NORMAL (NORMAL)
--- NOTE | 2017-11-09 22:04 | DR.GENAD ---
HPI - PCP Primary Care Physician: Dr Chanel - Complaint/Symptoms Chief Complaint Doctors Comments: Onset of symptoms today. Feeling hot and cold. Noted hoarseness of voice. She denies sweats, dysuria or rhinorrhea. Chief Complaint:: Feeling Weak, Voice is irene in and out, Hot and Cold Flashes, and Head and Back Pain. Self Treatment fo Chief Complaint: No Treatment - Nurses notes reviewed Nurses Notes Review: Yes - Source History Provided: Patient - Mode of Arrival Mode of Arrival: Ambulatory - Timing Onset of Chief Complaint: 11/09/17 PMH - PMH Past Medical History: Yes Past Medical History: Hypertension, Seizures Past Medical History Comment: Patient states that she has Seizures, Highblood pressure and Sinuses. 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 - Family History History of Family Medical Conditions: Yes Family Medical History: Diabetes Mellitus, Cancer Family Medical History Comment: None - Social History Does patient currently use any type of tobacco product: No Have you used tobacco products in the last 12 months: No Type of Tobacco Use: None How many years tobacco product used: 0 Does any household member use tobacco: No Alcohol Use: None Do you use any recreational Drugs:: No Lives With: Alone Lives Where: Home - infectious screening In the last 2 months have you had wt loss of >10#?: NO Have you had fever, night sweats or hemotysis?: No Have you traveled outside the country in the last 6 months?: No Isolation: Standard ROS - Review of Systems Constitutional: No Symptoms Reported, Other (hot and cold) Eyes: No Symptoms Reported ENTM: No Symptoms Reported Respiratoy: No Symptoms Reported Cardiovascular: No Symptoms Reported Gastrointestinal/Abdominal: No Symptoms Reported Genitourinary: No Symptoms Reported Neurological: No Symptoms Reported Musculoskeletal: No Symptoms Reported Integumentary: No Symptoms Reported Hematologic/Lymphatic: No Symptoms Reported Endocrine: No Symptoms Reported PE - Vital Signs Vitals: Temperature 98.2 F Pulse Rate 102 Respiratory Rate 16 Blood Pressure [Left Arm] 122/68 Blood Pressure [Right Arm] 146/76 Blood Pressure 126/62 O2 Sat by Pulse Oximetry 96 - General Limitations: No Limitations General Appearance: Alert, In No Apparent Distress - Head Head Exam: Normal Inspection - Eyes Eye exam: Normal Appearance - ENT ENT Exam: Normal Exam - Neck Neck Exam: Normal Inspection - Chest Chest Inspection: Normal Inspection - Respiratory Respiratory Exam: Normal Lung Sounds Bilat - Cardiovascular Cardiovascular Exam: Regular Rate, Normal Rhythm, +S1, +S2 - Abdominal Exam Abdominal Exam: Normal Inspection, Normal Bowel Sounds, Soft - Extremities Extremities Exam: Normal Inspection - Back Back Exam: Normal Inspection - Neurologic Neurological Exam: Alert, Oriented X3 - Psychiatric Psychiatric Exam: Normal Affect, Normal Mood - Skin Skin Exam: Warm, Dry, Intact, Normal Color ROR - Labs Reviewed Laboratory Results Reviewed?: Yes Result Diagrams: 11/09/17 22:15 Laboratory: WBC 7.6 X10^3/uL (3.6-10.0) 11/09/17 22:15 RBC 4.53 X10^6/uL (3.5-5.4) 11/09/17 22:15 Hgb 10.3 g/dL (12.0-16.0) L 11/09/17 22:15 Hct 31.4 % (36.0-47.0) L 11/09/17 22:15 MCV 69.3 fL (80.0-100.0) L 11/09/17 22:15 MCH 22.7 pg (27.0-34.0) L 11/09/17 22:15 MCHC 32.7 g/dL (33.0-35.0) L 11/09/17 22:15 RDW 16.3 % (11.6-16.5) 11/09/17 22:15 Plt Count 306 X10^3/uL (150.0-450.0) 11/09/17 22:15 Plt Count Comment Adequate (ADEQUATE) 11/09/17 22:15 MPV 9.1 fL (7.4-11.0) 11/09/17 22:15 Neut % (Auto) 57.3 % (42.0-75.0) 11/09/17 22:15 Lymph % (Auto) 35.4 % (21.0-51.0) 11/09/17 22:15 [place] % (Auto) 4.8 % (0.0-13.0) 11/09/17 22:15 Eos % (Auto) 0.9 % (0.9-2.9) 11/09/17 22:15 Baso % (Auto) 1.6 % (0.2-1.0) H 11/09/17 22:15 Neut # (Auto) 4.4 x10^3/uL (2.2-4.8) 11/09/17 22:15 Lymph # (Auto) 2.7 X10^3/uL (1.3-2.9) 11/09/17 22:15 [place] # (Auto) 0.4 x10^3/uL (0.3-0.8) 11/09/17 22:15 Eos # (Auto) 0.1 x10^3/uL (0.0-0.2) 11/09/17 22:15 Baso # (Auto) 0.1 X10^3/uL (0.0-0.1) 11/09/17 22:15 Absolute Nucleated RBC 0.1 /100WBC 11/09/17 22:15 Plt Morphology Comment Normal (NORMAL) 11/09/17 22:15 RBC Morphology Abnormal (NORMAL) A 11/09/17 22:15 Hypochromasia 1+ A 11/09/17 22:15 Poikilocytosis Slight A 11/09/17:15 Microcytosis 1+ A 11/09/17 22:15 Specimen Type Clean catch urine 11/09/17 21:44 Urine Color Yellow (YELLOW) 11/09/17 21:44 Urine Appearance Slightly hazy (CLEAR) 11/09/17 21:44 Urine pH 6.0 (5.0 - 8.0) 11/09/17 21:44 Ur Specific [place] 1.015 (1.000-1.030) 11/09/17 21:44 Urine Protein Negative (NEGATIVE) 11/09/17 21:44 Urine Glucose (UA) Negative (NEGATIVE) 11/09/17 21:44 Urine Ketones Negative (NEGATIVE) 11/09/17 21:44 Urine Occult Blood 1+ (NEGATIVE) 11/09/17 21:44 Urine Nitrite Negative (NEGATIVE) 11/09/17 21:44 Urine Bilirubin Negative (NEGATIVE) 11/09/17 21:44 Urine Urobilinogen Normal (NORMAL) 11/09/17 21:44 Ur Leukocyte Esterase 2+ (NEGATIVE) 11/09/17 21:44 Urine RBC 0-2 /HPF (NONE SEEN) 11/09/17 21:44 Urine WBC 5-10 /HPF (NONE SEEN) 11/09/17 21:44 Ur Squamous Epith Cells Moderate /HPF (NEGATIVE) 11/09/17 21:44 Urine Bacteria Trace /HPF (NEGATIVE) 11/09/17 21:44 Ur Culture Indicated? Yes/culture set up 11/09/17 21:44 S. pyogenes (TEM-PCR) Not detected (NOT DETECT) 11/09/17 22:05 - XRAY XRAY Interpreted by: Self (CXR: NAD) - Diagnosis Discharge Problem: Urinary tract infection - Discharge Plan Disposition: 01 HOME, SELF-CARE Condition: Stable - Follow ups/Referrals Follow ups/Referrals: NFD,None [Primary Care Provider] - 3 days - Instructions Instructions: Urinary Tract Infection, Adult, [id number]
--- NOTE | 2017-11-09 22:17 | RAD ---
Chest, two views Indication: Weak Comparison: 05/31/2017 Findings: Heart size is normal. No focal consolidation, significant effusion or pneumothorax is ident ified. 9 mm nodular opacity projecting over the left lateral lung base on the AP view likely represen ts a nipple shadow. Surgical clips projecting over the left axilla noted. No acute osseous abnormalit y is identified. Impression: Probable left-sided nipple shadow, as detailed above. Consider repeat PA and lateral radiograph with nipple markers, if clinically indicated. Otherwise, no acute cardiopulmonary abnormality or significant change since prior. Reported By:
[2017-11-09 22:18] LABS: APPEARANCE,URINE SLIGHTLY HAZY (CLEAR); COLOR,URINE YELLOW (YELLOW); RBC,URINE 0-2 /HPF (NONE SEEN); SQUAMOUS EPITHELIAL CELL,UR MODERATE /HPF (NEGATIVE)
[2017-11-09 22:19] LABS: BACTERIA,URINE TRACE /HPF (NEGATIVE)
[2017-11-09 22:32] LABS: BASOPHILS # (AUTO) 0.1 X10^3/uL (0.0-0.1); BASOPHILS % (AUTO) 1.6 % (0.2-1.0); EOSINOPHILS # (AUTO) 0.1 x10^3/uL (0.0-0.2); EOSINOPHILS % (AUTO) 0.9 % (0.9-2.9); HEMATOCRIT 31.4 % (36.0-47.0); HEMOGLOBIN 10.3 g/dL (12.0-16.0); LYMPHOCYTES # (AUTO) 2.7 X10^3/uL (1.3-2.9); LYMPHOCYTES % (AUTO) 35.4 % (21.0-51.0); MEAN CORPUSCULAR HEMOGLOBIN 22.7 pg (27.0-34.0); MEAN CORPUSCULAR HGB CONC 32.7 g/dL (33.0-35.0); MEAN CORPUSCULAR VOLUME 69.3 fL (80.0-100.0); MEAN PLATELET VOLUME 9.1 fL (7.4-11.0); MONOCYTES # (AUTO) 0.4 x10^3/uL (0.3-0.8); MONOCYTES % (AUTO) 4.8 % (0.0-13.0); NEUTROPHILS # (AUTO) 4.4 x10^3/uL (2.2-4.8); NEUTROPHILS % (AUTO) 57.3 % (42.0-75.0); PLATELET COUNT 306 X10^3/uL (150.0-450.0); RED BLOOD COUNT 4.53 X10^6/uL (3.5-5.4); RED CELL DISTRIBUTION WIDTH 16.3 % (11.6-16.5); WHITE BLOOD COUNT 7.6 X10^3/uL (3.6-10.0)
[2017-11-09 22:47] LABS: HYPOCHROMASIA 1+; MICROCYTOSIS 1+; PLATELET MORPHOLOGY COMMENT NORMAL (NORMAL); POIKILOCYTOSIS SLIGHT
[2017-11-09] MEDS ORDERED: LEVAQUIN TAB 500 MG ONE (23:18)
[2017-11-10] MEDS ORDERED: LEVAQUIN TAB 500 MG PO ONE (23:05)
== END 2017-11-09 23:22 | disposition home or self-care (01) ==
LOC: ER 21:35
DX: N39.0 Urinary tract infection, site not specified (principal)
CPT/HCPCS: 36415; 71046; 81001; 85025; 87086; 87651; 99282; 99283

== ENCOUNTER 2020-10-24 16:16 | Observation (INO) ==
--- NOTE | 2020-10-24 16:48 | DR.GENAD ---
HPI Time Seen Time Seen by Provider: 10/24/20 16:43 PCP Primary Care Physician: JOSE VAZQUEZ HPI Comment HPI Comment: Sudden onset of feeling "weak" while cleaning her house just [employer]; "had to sit down and could hardly get back up" by herself; she has felt well up to now; she saw hiv clinic 10/15 but says no labs were done; she has been taking her meds as written and is eating and drinking per the usual; she does have a h/o anemia; denies cough, palpitations, sob, n/v/d, rash, mejia, dizziness, le edema; she has chronic lbp and had an episode of chest pain a few days ago which resolved spontaneously. She has hector and stopped her iron because it gives her diarrhea. 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 Past Surgical History Comment: TUBAL Family History History of Family Medical Conditions: Yes Family Medical History: Diabetes Mellitus and Cancer Social History Does patient currently use any type of tobacco product: No Have you used tobacco products in the last 12 months: No Type of Tobacco Use: None Does any household member use tobacco: No Alcohol Use: None Do you use any recreational Drugs:: No Lives With: Family Lives Where: Home Travel Risk Coronavirus risk:travel/contact w/high risk person: No Has patient experienced Coronavirus symptoms: No Infectious screening In the last 2 months have you had wt loss of >10#?: NO Have you had fever, night sweats or hemotysis?: No Have you traveled outside the country in the last 6 months?: No Isolation: Standard ROS Review of Systems Eyes: No Symptoms Reported ENTM: No Symptoms Reported Respiratoy: No Symptoms Reported Gastrointestinal/Abdominal: Abdominal Pain ("some" earlier today) Neurological: No Symptoms Reported Musculoskeletal: No Symptoms Reported Integumentary: No Symptoms Reported Hematologic/Lymphatic: No Symptoms Reported Endocrine: No Symptoms Reported Psychiatric: No Symptoms Reported PE Vital Signs Vitals: Temperature 96.9 F Pulse Rate 86 Respiratory Rate 18 Blood Pressure [Left Arm] 196/86 Blood Pressure [Right Arm] 146/76 Blood Pressure 153/67 O2 Sat by Pulse Oximetry 100 General Limitations: No Limitations General Appearance: Alert and In No Apparent Distress Head Head Exam: Normal Inspection Eyes Eye exam: Normal Appearance ENT ENT Exam: Normal Exam External Ear Exam: Normal External Inspection TM/Canal Exam: Bilateral: Normal Nose Exam: Normal Nose Exam Mouth Exam: Normal Inspection Throat Exam: Normal Inspection Neck Neck Exam: Normal Inspection Chest Chest Inspection: Normal Inspection Respiratory Respiratory Exam: Normal Lung Sounds Bilat Respiratory Exam: Bilateral: Clear to Auscultation Cardiovascular Cardiovascular Exam: Regular Rate and Normal Rhythm Abdominal Exam Abdominal Exam: Normal Bowel Sounds, Soft and Tenderness (mild epigastric/upper) Extremities Extremities Exam: Normal Inspection Back Back Exam: Normal Inspection Neurologic Neurological Exam: Alert and Oriented X3 Psychiatric Psychiatric Exam: Normal Affect and Normal Mood Skin Skin Exam: Warm, Dry, Intact and Normal Color MDM Differential Diagnosis Differential Diagnosis: anemia, mi, uti, hiv ROR Labs Reviewed Laboratory Results Reviewed?: Yes Result Diagrams: 10/24/20 16:55 10/24/20 16:55 Laboratory: WBC 7.0 X10^3/uL (3.6-10.0) 10/24/20 16:55 RBC 3.77 X10^6/uL (3.5-5.4) 10/24/20 16:55 Hgb 7.2 g/dL (12.0-16.0) L 10/24/20 16:55 Hct 24.3 % (36.0-47.0) L 10/24/20 16:55 MCV 64.5 fL (80.0-100.0) L 10/24/20 16:55 MCH 19.2 pg (27.0-34.0) L 10/24/20 16:55 MCHC 29.8 g/dL (33.0-35.0) L 10/24/20 16:55 RDW 18.7 % (11.6-16.5) H 10/24/20 16:55 Plt Count 433 X10^3/uL (150.0-450.0) 10/24/20 16:55 Plt Count Comment Increased (ADEQUATE) A 10/24/20 16:55 MPV 9.7 fL (7.4-11.0) 10/24/20 16:55 Neut % (Auto) 64.0 % (42.0-75.0) 10/24/20 16:55 Lymph % (Auto) 26.9 % (21.0-51.0) 10/24/20 16:55 [place] % (Auto) 5.3 % (0.0-13.0) 10/24/20 16:55 Eos % (Auto) 2.4 % (0.9-2.9) 10/24/20 16:55 Baso % (Auto) 1.4 % (0.2-1.0) H 10/24/20 16:55 Neut # (Auto) 4.5 x10^3/uL (2.2-4.8) 10/24/20 16:55 Lymph # (Auto) 1.9 X10^3/uL (1.3-2.9) 10/24/20 16:55 [place] # (Auto) 0.4 x10^3/uL (0.3-0.8) 10/24/20 16:55 Eos # (Auto) 0.2 x10^3/uL (0.0-0.2) 10/24/20 16:55 Baso # (Auto) 0.1 X10^3/uL (0.0-0.1) 10/24/20 16:55 Absolute Nucleated RBC 0.0 /100WBC 10/24/20 16:55 Plt Morphology Comment Normal (NORMAL) 10/24/20 16:55 RBC Morphology Abnormal (NORMAL) A 10/24/20 16:55 Hypochromasia 2+ A 10/24/20 16:55 Poikilocytosis Slight A 10/24/20 16:55 Anisocytosis Slight A 10/24/20 16:55 Microcytosis 2+ A 10/24/20 16:55 Target Cells 1+ A 10/24/20 16:55 Sodium 145 mmol/L (136-145) 10/24/20 16:55 Corrected Sodium TNP 10/24/20 16:55 Potassium 3.4 mmol/L (3.5-5.1) L 10/24/20 16:55 Chloride 108 mmol/L (98-107) H 10/24/20 16:55 Carbon Dioxide 27.0 mmol/L (21-32) 10/24/20 16:55 BUN 11 mg/dL (7-18) 10/24/20 16:55 Creatinine 0.79 mg/dL (0.55-1.02) 10/24/20 16:55 Est GFR (MDRD) Af Amer > 60 (>60) 10/24/20 16:55 Est GFR (MDRD) Non-Af > 60 (>60) 10/24/20 16:55 Glucose 103 mg/dL (65-99) H 10/24/20 16:55 Calcium 8.9 mg/dL (8.5-10.1) 10/24/20 16:55 Corrected Calcium TNP 10/24/20 16:55 Total Bilirubin 0.10 mg/dL (0.2-1.0) L 10/24/20 16:55 AST 19 Units/L (15-37) 10/24/20 16:55 ALT 22 Units/L (12-78) 10/24/20 16:55 Alkaline Phosphatase 72 Units/L (46-116) 10/24/20 16:55 Creatine Kinase 324 Units/L (26-192) H 10/24/20 16:55 CK-MB (CK-2) 2.7 ng/mL (0-4.0) 10/24/20 16:55 CK/CKMB % Calc 0.8 % (<4) 10/24/20 16:55 Troponin I < 0.02 ng/mL (0-1.5) 10/24/20 16:55 Total Protein 7.6 g/dL (6.4-8.2) 10/24/20 16:55 Albumin 3.5 g/dL (3.4-5.0) 10/24/20 16:55 Globulin 4.1 g/dL (2.5-4.5) 10/24/20 16:55 Albumin/Globulin Ratio 0.9 Ratio (1.1-2.1) L 10/24/20 16:55 Specimen Type Clean catch urine 10/24/20 17:36 Urine Color Straw (YELLOW) 10/24/20 17:36 Urine Appearance Clear (CLEAR) 10/24/20 17:36 Urine pH 6.0 (5.0 - 8.0) 10/24/20 17:36 Ur Specific [place] 1.010 (1.000-1.030) 10/24/20 17:36 Urine Protein Negative (NEGATIVE) 10/24/20 17:36 Urine Glucose (UA) Negative (NEGATIVE) 10/24/20 17:36 Urine Ketones Negative (NEGATIVE) 10/24/20 17:36 Urine Occult Blood Negative (NEGATIVE) 10/24/20 17:36 Urine Nitrite Negative (NEGATIVE) 10/24/20 17:36 Urine Bilirubin Negative (NEGATIVE) 10/24/20 17:36 Urine Urobilinogen Normal (NORMAL) 10/24/20 17:36 Ur Leukocyte Esterase 1+ (NEGATIVE) 10/24/20 17:36 Urine RBC None seen /HPF (0-3) 10/24/20 17:36 Urine WBC 0-2 /HPF (0-5) 10/24/20 17:36 Ur Squamous Epith Cells Rare /HPF (NEGATIVE) 10/24/20 17:36 Urine Bacteria Trace /HPF (NEGATIVE) 10/24/20 17:36 Ur Culture Indicated? No/not indicated 10/24/20 17:36 Opioid Opioid Risk Tool Age (Kamari box if 16-45): No History of Preadolescent Sexual Abuse: No Total: 0 Total Score Risk Category: Low Risk Copyright: Armando FLEMING predicting aberrant behaviors Diagnosis Discharge Problem: Symptomatic anemia, Weakness, HIV disease, Chronic iron deficiency anemia, Acute hypokalemia Instructions Instructions: Anemia Forms: Patient Portal Social Distancing
[2020-10-24 17:10] LABS: BASOPHILS # (AUTO) 0.1 X10^3/uL (0.0-0.1); BASOPHILS % (AUTO) 1.4 % (0.2-1.0); EOSINOPHILS # (AUTO) 0.2 x10^3/uL (0.0-0.2); EOSINOPHILS % (AUTO) 2.4 % (0.9-2.9); HEMATOCRIT 24.3 % (36.0-47.0); HEMOGLOBIN 7.2 g/dL (12.0-16.0); LYMPHOCYTES # (AUTO) 1.9 X10^3/uL (1.3-2.9); LYMPHOCYTES % (AUTO) 26.9 % (21.0-51.0); MEAN CORPUSCULAR HEMOGLOBIN 19.2 pg (27.0-34.0); MEAN CORPUSCULAR HGB CONC 29.8 g/dL (33.0-35.0); MEAN CORPUSCULAR VOLUME 64.5 fL (80.0-100.0); MEAN PLATELET VOLUME 9.7 fL (7.4-11.0); MONOCYTES # (AUTO) 0.4 x10^3/uL (0.3-0.8); MONOCYTES % (AUTO) 5.3 % (0.0-13.0); NEUTROPHILS # (AUTO) 4.5 x10^3/uL (2.2-4.8); PLATELET COUNT 433 X10^3/uL (150.0-450.0); RED BLOOD COUNT 3.77 X10^6/uL (3.5-5.4); RED CELL DISTRIBUTION WIDTH 18.7 % (11.6-16.5)
--- NOTE | 2020-10-24 17:16 | RAD ---
HISTORYWeaknessSTUDYCHEST, 1 VIEWCOMPARISONNoneFINDINGSCardiac silhouette is accentuated, though pulmonary vasculature is not congested. No significant airspace disease. No pleural effusion or pneumothorax. Left axillary surgical clips.IMPRESSIONNo acute abnormality.Electronically signed by: Nicola Barraza (Oct 24, 2020 17:14:49)
[2020-10-24 17:19] LABS: ANISOCYTOSIS SLIGHT; HYPOCHROMASIA 2+; MICROCYTOSIS 2+; PLATELET MORPHOLOGY COMMENT NORMAL (NORMAL); TARGET CELLS 1+
[2020-10-24 17:20] LABS: POIKILOCYTOSIS SLIGHT
[2020-10-24 17:21] LABS: BLOOD UREA NITROGEN 11 mg/dL (7-18); CALCIUM 8.9 mg/dL (8.5-10.1); CHLORIDE 108 mmol/L (98-107); CREATININE 0.79 mg/dL (0.55-1.02); SODIUM 145 mmol/L (136-145); TROPONIN I < 0.02 ng/mL (0-1.5); eGFR NON BLACK RACES > 60 (>60)
[2020-10-24 17:25] LABS: ALANINE AMINOTRANSFERASE 22 Units/L (12-78); ALBUMIN 3.5 g/dL (3.4-5.0); ALKALINE PHOSPHATASE 72 Units/L (46-116); ASPARTATE AMINO TRANSFERASE 19 Units/L (15-37); CKMB % 0.8 % (<4); CREATINE KINASE 324 Units/L (26-192); CREATINE KINASE MB 2.7 ng/mL (0-4.0); TOTAL PROTEIN 7.6 g/dL (6.4-8.2)
[2020-10-24 17:49] LABS: BILIRUBIN,URINE NEGATIVE (NEGATIVE); BLOOD/HEMOGLOBIN,URINE NEGATIVE (NEGATIVE); GLUCOSE, URINE NEGATIVE (NEGATIVE); KETONES,URINE NEGATIVE (NEGATIVE); LEUKOCYTE ESTERASE ,URINE 1+ (NEGATIVE); NITRITES,URINE NEGATIVE (NEGATIVE); PROTEIN,URINE NEGATIVE (NEGATIVE); UROBILINOGEN,URINE NORMAL (NORMAL)
[2020-10-24 17:56] LABS: APPEARANCE,URINE CLEAR (CLEAR); COLOR,URINE STRAW (YELLOW)
[2020-10-24 18:00] LABS: BACTERIA,URINE TRACE /HPF (NEGATIVE); RBC,URINE NONE SEEN /HPF (0-3); SQUAMOUS EPITHELIAL CELL,UR RARE /HPF (NEGATIVE)
[2020-10-24] MEDS ORDERED: K-DUR TAB 20 MEQ PO ONE (19:20)
[2020-10-24] MEDS: K-DUR TAB 20 MEQ PO SCH (19:26)
[2020-10-24] MEDS ORDERED: NS 250 ML IV 250 ML IV ONE (21:01)
[2020-10-25 00:17] VITALS: BMI 18.6
[2020-10-25 04:41] LABS: HEMATOCRIT 38.1 % (36.0-47.0); HEMOGLOBIN 11.8 g/dL (12.0-16.0)
[2020-10-25 08:01] LABS: BASOPHILS # (AUTO) 0.1 X10^3/uL (0.0-0.1); EOSINOPHILS # (AUTO) 0.2 x10^3/uL (0.0-0.2); HEMATOCRIT 37.1 % (36.0-47.0); LYMPHOCYTES # (AUTO) 1.9 X10^3/uL (1.3-2.9); MEAN CORPUSCULAR VOLUME 69.4 fL (80.0-100.0); MEAN PLATELET VOLUME 10.4 fL (7.4-11.0)
[2020-10-25 08:04] LABS: BASOPHILS % (AUTO) 0.7 % (0.2-1.0); EOSINOPHILS % (AUTO) 2.3 % (0.9-2.9); HEMOGLOBIN 11.9 g/dL (12.0-16.0); LYMPHOCYTES % (AUTO) 20.8 % (21.0-51.0); MEAN CORPUSCULAR HEMOGLOBIN 22.2 pg (27.0-34.0); MONOCYTES # (AUTO) 0.4 x10^3/uL (0.3-0.8); MONOCYTES % (AUTO) 3.9 % (0.0-13.0); NEUTROPHILS # (AUTO) 6.7 x10^3/uL (2.2-4.8); NEUTROPHILS % (AUTO) 72.3 % (42.0-75.0); PLATELET COUNT 424 X10^3/uL (150.0-450.0); RED BLOOD COUNT 5.34 X10^6/uL (3.5-5.4); RED CELL DISTRIBUTION WIDTH 22.5 % (11.6-16.5); WHITE BLOOD COUNT 9.2 X10^3/uL (3.6-10.0)
[2020-10-25 08:07] LABS: ALANINE AMINOTRANSFERASE 22 Units/L (12-78); ALBUMIN 3.4 g/dL (3.4-5.0); ALKALINE PHOSPHATASE 75 Units/L (46-116); ASPARTATE AMINO TRANSFERASE 23 Units/L (15-37); BLOOD UREA NITROGEN 9 mg/dL (7-18); CALCIUM 8.9 mg/dL (8.5-10.1); CHLORIDE 106 mmol/L (98-107); CREATININE 0.67 mg/dL (0.55-1.02); SODIUM 145 mmol/L (136-145); TOTAL PROTEIN 8.1 g/dL (6.4-8.2); eGFR NON BLACK RACES > 60 (>60)
[2020-10-25 08:13] LABS: ANISOCYTOSIS 2+; HYPOCHROMASIA SLIGHT; MICROCYTOSIS 1+; PLATELET MORPHOLOGY COMMENT NORMAL (NORMAL)
[2020-10-25] MEDS: K-DUR TAB 20 MEQ PO SCH (08:30)
[2020-10-25 09:48] VITALS: BP 175/78
--- NOTE | 2020-11-20 12:19 | DR.CARTERS ---
Short Stay Summary - Admission Date Date of Admission: 10/24/20 - Discharge Date Discharge Date: 10/25/20 - Admission Diagnoses (1) Acute hypokalemia Status: Acute (2) Symptomatic anemia Status: Acute (3) Weakness Status: Acute - Hospital Course Hospital Course: TIME SPENT ON CLINICAL ASSESSMENT, REVIEWING LABS AND IMAGING, DECISION MAKING, AND DOCUMENTATION GREATER THAN 75 MINUTES. IS A 55 YEAR OLD PATIENT OF . SHE PRESENTED TO THE ER WITH COMPLAINTS OF SUDDEN ONSET OF WEAKNESS AND FATIGUE. PATIENT IS HIV POSITIVE AND DOES HAVE A HISTORY OF ANEMIA. SHE DENIED COUGH, PALPITATIONS, SOB, N/V/D, RASH, HEADACHE, DIZZINESS, OR EDEMA. SHE DID ADMIT TO CHRONIC LOW BLOOD PRESSURE. SHE ALSO ADMITTED TO AN EPISODE OF CHEST PAIN ABOUT THREE DAYS AGO THAT RESOLVED SPONTANEOUSLY. OTHER PMH INCLUDES HTN AND SEIZURES. ON ARRIVAL TO THE ER, VITALS WERE 96.9-86-18-100%-153/67. LABS WERE OBTAINED. ABNORMAL LAB VALUES INCLUDED THE FOLLOWING: HGB 7.2, HCT 24.3, POTASSIUM 3.4, CHLORIDE 108, GLUCOSE 103, TOTAL BILI 0.10, CREATINE KINASE 324. URINALYSIS WAS OBTAINED AND REVEALED: WBC 0-2, RBC NONE SEEN, LEUKOCYTES 1+, BACTERIA TRACE. COVID-19 NEGATIVE. A CHEST XRAY WAS OBTAINED AND REVEALED: NO ACUTE ABNORMALITY. EKG REVEALED: SINUS RHYTHM WITH HR 87. IN THE ER, SHE WAS GIVEN POTASSIUM CHLORIDE 20MEQ PO X 1 DOSE. SHE WAS ADMITTED TO THE HOSPITAL FOR FURTHER EVALUATION AND TREATMENT OF SYMPTOMATIC ANEMIA, WEAKNESS, AND HYPOKALEMIA. WE ORDERED TWO UNITS OF PACKED RED BLOOD CELLS TO BE TRANSFUSED WHEN AVAILABLE. ON THE MORNING OF ADMISSION, PATIENT WAS ALERT AND ORIENTED, LYING IN BED ON MORNING ROUNDS. SHE DENIED WEAKNESS, SHORTNESS OF BREATH, OR FATIGUE. SHE REPORTS FEELING WELL AND REQUESTED DISCHARGE HOME. ON EXAMINATION, HEART IS REGULAR IN RATE AND RHYTHM. BILATERAL LUNGS CLEAR TO AUSCULTATION. ABDOMEN IS FLAT, SOFT, AND NON-TENDER WITH NORMAL BOWEL SOUNDS NOTED IN ALL QUADRANTS. HER VITALS THIS MORNING ARE: 99.2-100-18-92%RA-175/78. LABS WERE OBTAINED. ABNORMAL LAB VALUES INCLUDE THE FOLLOWING: HGB 11.9, POTASSIUM 3.4, GLUCOSE 103, GLOBULIN 4.7. SHE WAS GIVEN AN ADDITIONAL DOSE OF POTASSIUM 20MEQ THIS MORNING. WE PLANNED FOR DISCHARGE. INSTRUCTIONS FOR MEDICATIONS AND FOLLOW UP WERE DISCUSSED WITH PATIENT. SHE VERBALIZED UNDERSTANDING OF ALL ORDERS. SHE WAS INSTRUCTED TO CONTINUE HER CURRENT MEDICATIONS AND TO FOLLOW UP WITH AT THE BEGINNING OF THE WEEK. [place] WAS DISCHARGED HOME WITH FAMILY IN STABLE CONDITION. TIME SPENT ON CLINICAL ASSESSMENT, REVIEWING LABS AND IMAGING, DECISION MAKING, PREPARING DISCHARGE INSTRUCTIONS, AND DOCUMENTATION GREATER THAN 75 MINUTES. - Discharge Medications Discharge Medications: Prescriptions: - Discharge Plan Disposition: 01 HOME, SELF-CARE Condition: Stable - Follow up/Referrals Follow up/Referrals: TONY GARCIA [Primary Care Provider] - 3 days - Instructions Instructions: Anemia, Preventing Iron Deficiency Anemia, Adult, Weakness, [id number], Iron-Rich Diet Additional Instructions: DIET TOLERATED. ACTIVITY TOLERATED. Forms: Excuse From Work or School, Precautions for COVID19, Patient Portal, Social Distancing
== END 2020-10-25 10:20 | disposition home or self-care (01) ==
LOC: ER 16:20 → MED/SURG 16:20 → ER 19:32 → MED/SURG 20:56
PROVIDERS: ADMIT Internal Medicine; ATTEND Obstetrics & Gynecology Obstetrics
DX: R53.1 Weakness; I95.89 Other hypotension; R94.31 Abnormal electrocardiogram [ECG] [EKG]; D64.89 Other specified anemias; Z20.822 Contact with and (suspected) exposure to COVID-19; E87.6 Hypokalemia

== ENCOUNTER 2024-07-15 22:20 | Observation (INO) ==
--- NOTE | 2024-07-15 22:55 | DR.AMS ---
HPI Time Seen Time Seen by Provider: 07/15/24 22:54 PCP Primary Care Physician: Dr. Hadley Complaint Chief Complaint:: Patietnt brought in er via ems with complaints of weakness, shaking, and left lower extremity edema for a "few days". [place]er states pt was seen on 07/10/26 and prescribed a multivitamin w/Iron. Daughter states symptoms started after beginning multivitamin. Patient A&O. Edema noted to left lower ext. extremity warm to touch. Pedal pulses present and strong. Self Treatment fo Chief Complaint: NA COVID-19 Coronavirus risk:travel/contact w/high risk person: No Has patient experienced Coronavirus symptoms: Yes Coronavirus symptoms experienced: Fever Reviewed Nurses Notes Reviewed: Yes Source History Provided: Patient Mode of Arrival Mode of Arrival: EMS Timing Onset of Chief Complaint: 07/11/24 PMH PMH Past Medical History: Yes Past Medical History: Anemia, Anxiety, Arthritis, Depression, Dyslipidemia, GERD , Hypertension, PUD and Seizures Past Medical History Comment: HIV, Past Surgical History: Yes Surgical History: and BREAKER UP Surgery Past Surgical History Comment: Left breast mass excision Family History History of Family Medical Conditions: Yes Family Medical History: Cancer and Hypertension Social History Does patient currently use any type of tobacco product: No Have you used tobacco products in the last 12 months: No Type of Tobacco Use: None Does any household member use tobacco: No Alcohol Use: None Do you use any recreational Drugs:: No Lives With: Family Lives Where: Home Travel Risk Coronavirus risk:travel/contact w/high risk person: No Has patient experienced Coronavirus symptoms: Yes Coronavirus symptoms experienced: Fever Infectious screening Have you traveled outside the country in the last 6 months?: No Isolation: Standard PE Vitals Vital Signs: Temp Pulse Pulse Resp BP BP Pulse Ox 07/16/24 03:59 103 H 18 117/59 94 L 07/16/24 02:50 18 07/15/24 22:40 100.2 F H 133 H 20 122/56 97 O2 Del Method 07/16/24 03:59 07/16/24 02:50 07/15/24 22:40 Room Air ROR Labs Reviewed 07/15/24 23:03 07/15/24 23:03 Laboratory: WBC 10.7 X10^3/uL (3.6-10.0) H 07/15/24 23:03 RBC 4.40 X10^6/uL (3.5-5.4) 07/15/24 23:03 Hgb 9.6 g/dL (12.0-16.0) L 07/15/24 23:03 Hct 30.1 % (36.0-47.0) L 07/15/24 23:03 MCV 68.4 fL (80.0-100.0) L 07/15/24 23:03 MCH 21.8 pg (27.0-34.0) L 07/15/24 23:03 MCHC 31.9 g/dL (33.0-35.0) L 07/15/24 23:03 RDW 14.7 % (11.6-16.5) 07/15/24 23:03 Plt Count 161 X10^3/uL (150.0-450.0) 07/15/24 23:03 Plt Count Comment Adequate (ADEQUATE) 07/15/24 23:03 MPV 11.1 fL (7.4-11.0) H 07/15/24 23:03 Neut % (Auto) 87.9 % (42.0-75.0) H 07/15/24 23:03 Lymph % (Auto) 6.2 % (21.0-51.0) L 07/15/24 23:03 [place] % (Auto) 5.4 % (0.0-13.0) 07/15/24 23:03 Eos % (Auto) 0.0 % (0.9-2.9) L 07/15/24 23:03 Baso % (Auto) 0.5 % (0.2-1.0) 07/15/24 23:03 Neut # (Auto) 9.4 x10^3/uL (2.2-4.8) H 07/15/24 23:03 Lymph # (Auto) 0.7 X10^3/uL (1.3-2.9) L 07/15/24 23:03 [place] # (Auto) 0.6 x10^3/uL (0.3-0.8) 07/15/24 23:03 Eos # (Auto) 0.0 x10^3/uL (0.0-0.2) 07/15/24 23:03 Baso # (Auto) 0.1 X10^3/uL (0.0-0.1) 07/15/24 23:03 Absolute Nucleated RBC 0.0 /100WBC 07/15/24 23:03 Plt Morphology Comment Normal (NORMAL) 07/15/24 23:03 RBC Morphology Abnormal (NORMAL) A 07/15/24 23:03 Hypochromasia 2+ A 07/15/24 23:03 Microcytosis 1+ A 07/15/24 23:03 Ovalocytes Present 07/15/24 23:03 PT 15.7 SECONDS (11.8-14.3) 07/15/24 23:03 INR Target Range - 07/15/24 23:03 INR 1.28 (0.8-1.3) 07/15/24 23:03 APTT 33.5 SECONDS (22.9-36.5) 07/15/24 23:03 PTT Comment - 07/15/24 23:03 Sodium 135 mmol/L (136-145) L 07/15/24 23:03 Corrected Sodium 136 mmol/L (136-145) 07/15/24 23:03 Potassium 3.0 mmol/L (3.5-5.1) L 07/15/24 23:03 Chloride 99 mmol/L (98-107) 07/15/24 23:03 Carbon Dioxide 22.8 mmol/L (21-32) 07/15/24 23:03 BUN 26 mg/dL (7-18) H 07/15/24 23:03 Creatinine 1.48 mg/dL (0.55-1.02) H 07/15/24 23:03 Est GFR (MDRD) Af Amer 46 (>60) L 07/15/24 23:03 Est GFR (MDRD) Non-Af 38 (>60) L 07/15/24 23:03 Glucose 145 mg/dL (65-99) H 07/15/24 23:03 Calcium 7.9 mg/dL (8.5-10.1) L 07/15/24 23:03 Corrected Calcium 9.0 mg/dL (8.5-10.1) 07/15/24 23:03 Total Bilirubin 0.20 mg/dL (0.2-1.0) 07/15/24 23:03 AST 133 Units/L (15-37) H 07/15/24 23:03 ALT 83 Units/L (12-78) H 07/15/24 23:03 Alkaline Phosphatase 122 Units/L (46-116) H 07/15/24 23:03 B-Natriuretic Peptide 20.5 pg/mL (0-79) 07/15/24 23:03 Total Protein 7.2 g/dL (6.4-8.2) 07/15/24 23:03 Albumin 2.6 g/dL (3.4-5.0) L 07/15/24 23:03 Globulin 4.6 g/dL (2.5-4.5) H 07/15/24 23:03 Albumin/Globulin Ratio 0.6 Ratio (1.1-2.1) L 07/15/24 23:03 Specimen Type Clean catch urine 07/15/24 23:13 Urine Color Yellow (YELLOW) 07/15/24 23:13 Urine Appearance Cloudy (CLEAR) 07/15/24 23:13 Urine pH 6.0 (5.0 - 8.0) 07/15/24 23:13 Ur Specific [place] 1.015 (1.000-1.030) 07/15/24 23:13 Urine Protein 2+ (NEGATIVE) 07/15/24 23:13 Urine Glucose (UA) Negative (NEGATIVE) 07/15/24 23:13 Urine Ketones Negative (NEGATIVE) 07/15/24 23:13 Urine Blood 4+ (NEGATIVE) 07/15/24 23:13 Urine Nitrite Positive (NEGATIVE) 07/15/24 23:13 Urine Bilirubin Negative (NEGATIVE) 07/15/24 23:13 Urine Urobilinogen Normal (NORMAL) 07/15/24 23:13 Ur Leukocyte Esterase 3+ (NEGATIVE) 07/15/24 23:13 Urine RBC 3-5 /HPF (0-3) A 07/15/24 23:13 Urine WBC Tntc /HPF (0-5) A 07/15/24 23:13 Ur Squamous Epith Cells Rare /HPF (NEGATIVE) 07/15/24 23:13 Urine Bacteria 4+ /HPF (NEGATIVE) 07/15/24 23:13 Ur Culture Indicated? Yes/culture set up 07/15/24 23:13 SARS-CoV-2 (PCR) Negative (NEGATIVE) 07/15/24 22:57 Influenza Type A (PCR) Negative (NEGATIVE) 07/15/24 22:57 Influenza Type B (PCR) Negative (NEGATIVE) 07/15/24 22:57 RSV (PCR) Negative (NEGATIVE) 07/15/24 22:57 Opioid Opioid Risk Tool Age (Kamari box if 16-45): No History of Preadolescent Sexual Abuse: No Total: 0 Total Score Risk Category: Low Risk Copyright: Armando FLEMING predicting aberrant behaviors Discharge Plan Discharge Plan Patient Disposition: 01 HOME, SELF-CARE Condition: Stable Orders to Discharge Patient Discharge Orders: Transfer (Routine); Ordered 07/16/24 Ordered By: ABRAM HERRING
[2024-07-15 23:12] LABS: LYMPHOCYTES # (AUTO) 0.7 X10^3/uL (1.3-2.9); NEUTROPHILS # (AUTO) 9.4 x10^3/uL (2.2-4.8)
[2024-07-15 23:21] LABS: BASOPHILS # (AUTO) 0.1 X10^3/uL (0.0-0.1); BASOPHILS % (AUTO) 0.5 % (0.2-1.0); HEMATOCRIT 30.1 % (36.0-47.0); HEMOGLOBIN 9.6 g/dL (12.0-16.0); LYMPHOCYTES % (AUTO) 6.2 % (21.0-51.0); MEAN CORPUSCULAR HEMOGLOBIN 21.8 pg (27.0-34.0); MEAN CORPUSCULAR HGB CONC 31.9 g/dL (33.0-35.0); MEAN CORPUSCULAR VOLUME 68.4 fL (80.0-100.0); MEAN PLATELET VOLUME 11.1 fL (7.4-11.0); MONOCYTES # (AUTO) 0.6 x10^3/uL (0.3-0.8); MONOCYTES % (AUTO) 5.4 % (0.0-13.0); NEUTROPHILS % (AUTO) 87.9 % (42.0-75.0); PLATELET COUNT 161 X10^3/uL (150.0-450.0); RED CELL DISTRIBUTION WIDTH 14.7 % (11.6-16.5); WHITE BLOOD COUNT 10.7 X10^3/uL (3.6-10.0)
[2024-07-15 23:26] LABS: ALBUMIN 2.6 g/dL (3.4-5.0); CALCIUM 7.9 mg/dL (8.5-10.1); CARBON DIOXIDE 22.8 mmol/L (21-32); CREATININE 1.48 mg/dL (0.55-1.02); TOTAL PROTEIN 7.2 g/dL (6.4-8.2)
[2024-07-15 23:43] LABS: BILIRUBIN,URINE NEGATIVE (NEGATIVE); BLOOD/HEMOGLOBIN,URINE 4+ (NEGATIVE); GLUCOSE, URINE NEGATIVE (NEGATIVE); KETONES,URINE NEGATIVE (NEGATIVE); LEUKOCYTE ESTERASE ,URINE 3+ (NEGATIVE); NITRITES,URINE POSITIVE (NEGATIVE); PROTEIN,URINE 2+ (NEGATIVE); UROBILINOGEN,URINE NORMAL (NORMAL)
[2024-07-16 00:02] LABS: HYPOCHROMASIA 2+; MICROCYTOSIS 1+; OVALOCYTES PRESENT; PLATELET MORPHOLOGY COMMENT NORMAL (NORMAL)
[2024-07-16 00:03] LABS: APPEARANCE,URINE CLOUDY (CLEAR); COLOR,URINE YELLOW (YELLOW)
[2024-07-16 00:04] LABS: BACTERIA,URINE 4+ /HPF (NEGATIVE); SQUAMOUS EPITHELIAL CELL,UR RARE /HPF (NEGATIVE)
--- NOTE | 2024-07-16 02:10 | CT ---
EXAM: CT HEAD WITHOUT IV CONTRAST HISTORY: Confusion COMPARISON: None. TECHNIQUE: Axial images were acquired of the head without IV contrast. Coronal and sagittal images were provided . All images were reviewed in a variety of windows and levels. LIMITATIONS: Please note that CT has low sensitivity and accuracy for identifying acute infarction. I n addition, there are portions of the brain that are affected by beam hardening artifact which furthe r greatly limits identification of an acute infarct. RADIATION REDUCTION TECHNIQUE: Automated exposure control, Adjustment of the mA and/or kV according t o patient size, or iterative reconstruction techniques were used. FINDINGS: There is no evidence of an acute intracranial bleed. There is no evidence of a mass or midline shift. There is no evidence of an extra-axial fluid collection. The chapin-white matter differentiation is within normal limits. The visualized bones are unremarkable. The visualized sinuses are clear. The mastoid air cells are well-aerated. IMPRESSION: 1. THERE IS NO EVIDENCE OF AN ACUTE INTRACRANIAL BLEED THIS IS AN ELECTRONICALLY VERIFIED FINAL REPORT 07/16/2024 2:07 AM - Electronically signed by Oscar Suresh MD
[2024-07-16 02:35] LABS: INR 1.28 (0.8-1.3)
[2024-07-16] MEDS: ZOFRAN INJ 4 MG VIAL IVP ONE (02:44)
[2024-07-16] MEDS: NS + KCL 20 MEQ/L 1,000 ML IV SCH (02:44)
[2024-07-16] MEDS: MORPHINE SULFATE INJ 2 MG INJ IVP ONE (02:50)
--- NOTE | 2024-07-16 03:26 | VAS ---
EXAM: Duplex ultrasound of right or left lower extremity HISTORY: SWELLING, PAIN LLE; LEFT LEG SWELLING PAIN COMPARISON: None. TECHNIQUE: 30 images were provided for interpretation. FINDINGS: Exam is positive for deep venous thrombosis from the level of the left common femoral vein to the lef t popliteal vein. These mentioned veins do not show compression IMPRESSION: 1. Exam is positive for deep venous thrombosis from the level of the left common femoral vein to the left popliteal vein. THIS IS AN ELECTRONICALLY VERIFIED FINAL REPORT 07/16/2024 3:23 AM - Electronically signed by Oscar Suresh MD
[2024-07-16] MEDS: HEPARIN SODIUM IN D5W 25,000 UNITS/500 ML BAG IV PRN (03:38)
[2024-07-16] MEDS: HEPARIN SODIUM INJ 5000 UNITS IVP ONE (03:38)
[2024-07-16] MEDS ORDERED: MORPHINE SULFATE INJ 2 MG INJ IVP PRN (04:13)
[2024-07-16] MEDS ORDERED: ZOFRAN INJ 4 MG VIAL IVP PRN (04:18)
[2024-07-16 06:09] VITALS: BMI 26.4
[2024-07-16 06:33] LABS: BASOPHILS # (AUTO) 0.1 X10^3/uL (0.0-0.1); BASOPHILS % (AUTO) 0.5 % (0.2-1.0); HEMATOCRIT 33.1 % (36.0-47.0); HEMOGLOBIN 10.6 g/dL (12.0-16.0); LYMPHOCYTES # (AUTO) 1.3 X10^3/uL (1.3-2.9); LYMPHOCYTES % (AUTO) 12.2 % (21.0-51.0); MEAN CORPUSCULAR HEMOGLOBIN 21.9 pg (27.0-34.0); MEAN CORPUSCULAR VOLUME 68.3 fL (80.0-100.0); MEAN PLATELET VOLUME 11.3 fL (7.4-11.0); MONOCYTES # (AUTO) 0.4 x10^3/uL (0.3-0.8); MONOCYTES % (AUTO) 3.9 % (0.0-13.0); NEUTROPHILS # (AUTO) 8.7 x10^3/uL (2.2-4.8); NEUTROPHILS % (AUTO) 83.4 % (42.0-75.0); PLATELET COUNT 163 X10^3/uL (150.0-450.0); RED BLOOD COUNT 4.84 X10^6/uL (3.5-5.4); RED CELL DISTRIBUTION WIDTH 14.9 % (11.6-16.5); WHITE BLOOD COUNT 10.4 X10^3/uL (3.6-10.0)
[2024-07-16 06:47] LABS: INR 1.32 (0.8-1.3)
[2024-07-16 06:50] LABS: ALANINE AMINOTRANSFERASE 91 Units/L (12-78); ALBUMIN 2.9 g/dL (3.4-5.0); ALKALINE PHOSPHATASE 140 Units/L (46-116); ASPARTATE AMINO TRANSFERASE 134 Units/L (15-37); BLOOD UREA NITROGEN 21 mg/dL (7-18); CALCIUM 8.5 mg/dL (8.5-10.1); CARBON DIOXIDE 24.1 mmol/L (21-32); CHLORIDE 100 mmol/L (98-107); COR CA(FOR HYPOALB) 9.4 mg/dL (8.5-10.1); COR NA(FOR HYPERGLY) 137 mmol/L (136-145); CREATININE 1.16 mg/dL (0.55-1.02); GLUCOSE 155 mg/dL (65-99); MAGNESIUM 1.4 mg/dL (2.0-2.9); POTASSIUM 4.1 mmol/L (3.5-5.1); SODIUM 136 mmol/L (136-145); TOTAL PROTEIN 8.2 g/dL (6.4-8.2); eGFR NON BLACK RACES 51 (>60)
--- NOTE | 2024-07-16 07:01 | RAD ---
EXAM: Left femur two views HISTORY: Pain and swelling COMPARISON: None FINDINGS: No fracture, lytic, or blastic lesion is identified. No abnormal periosteal reaction or soft tissu e abnormality identified. IMPRESSION: No significant abnormality identified THIS IS AN ELECTRONICALLY VERIFIED FINAL REPORT 07/16/2024 6:58 AM - Electronically signed by Jhonny Leggett MD
--- NOTE | 2024-07-16 07:01 | RAD ---
EXAM:Portable chestHISTORY:Weakness, shortness of breath, edemaCOMPARISON:08/04/2021FINDINGS:Heart size is normal. Sli are normal. Lung cole are clear. No pleural effusions are identified. Bony thorax is unremarkable.IMPRESSION:No significant abnormality identifiedTHIS IS AN ELECTRONICALLY VERIFIED FINAL CHAHZH8007/16/2024 6:57 AM - Electronically signed by Jhonny Leggett MD
[2024-07-16 07:07] LABS: HYPOCHROMASIA 2+; MICROCYTOSIS 1+; PLATELET MORPHOLOGY COMMENT NORMAL (NORMAL)
[2024-07-16 07:08] LABS: BILIRUBIN,URINE NEGATIVE (NEGATIVE); BLOOD/HEMOGLOBIN,URINE 5+ (NEGATIVE); GLUCOSE, URINE NEGATIVE (NEGATIVE); KETONES,URINE NEGATIVE (NEGATIVE); LEUKOCYTE ESTERASE ,URINE 3+ (NEGATIVE); NITRITES,URINE POSITIVE (NEGATIVE); PROTEIN,URINE 3+ (NEGATIVE); UROBILINOGEN,URINE NORMAL (NORMAL)
[2024-07-16 07:18] LABS: APPEARANCE,URINE CLOUDY (CLEAR); COLOR,URINE YELLOW (YELLOW)
[2024-07-16 07:19] LABS: BACTERIA,URINE 2+ /HPF (NEGATIVE); SQUAMOUS EPITHELIAL CELL,UR RARE /HPF (NEGATIVE)
[2024-07-16] MEDS ORDERED: CONSULT PHARMACY - POTASSIUM & MAGNESIUM XX SCH (08:00)
[2024-07-16] MEDS ORDERED: BUSPAR PO PRN ×2 (09:18→09:19)
[2024-07-16] MEDS ORDERED: NEURONTIN CAP 300 MG PO SCH (10:00)
[2024-07-16] MEDS ORDERED: LEXAPRO ONE (10:03)
[2024-07-16] MEDS: PEPCID TAB 40 MG PO SCH (10:08)
[2024-07-16] MEDS: TOPROL XL PO SCH (10:08)
[2024-07-16] MEDS: LEXAPRO PO SCH (10:08)
[2024-07-16] MEDS: KLOR-CON 10 MEQ TAB PO SCH (10:08)
[2024-07-16] MEDS: MICARDIS PO SCH (10:08)
[2024-07-16] MEDS: ELIQUIS PO SCH (10:09)
[2024-07-16] MEDS: NEURONTIN CAP 300 MG PO SCH (10:09)
[2024-07-16] MEDS: KEPPRA TAB 500 MG PO SCH (10:09)
[2024-07-16] MEDS: ROCEPHIN VIAL 1 GRAM 1 G in NS 100 ML IV 100 ML IV SCH (10:09)
[2024-07-16] MEDS: NS 1,000 ML IV 1,000 ML with MAGNESIUM SULFATE 50% INJ VIAL 1 G IV SCH (10:10)
[2024-07-16] MEDS: NS + KCL 20 MEQ/L 1,000 ML with MAGNESIUM SULFATE 50% INJ VIAL 1 G IV SCH (10:25)
[2024-07-16] MEDS: TYLENOL 325 MG TAB PO PRN (16:42)
[2024-07-16] MEDS: REMERON PO SCH (20:44)
[2024-07-17] MEDS: NORCO 5/325 MG TAB PO PRN (01:14)
[2024-07-17 02:04] VITALS: O2SAT 100
[2024-07-17 06:41] LABS: BASOPHILS # (AUTO) 0.1 X10^3/uL (0.0-0.1); BASOPHILS % (AUTO) 0.7 % (0.2-1.0); HEMOGLOBIN 10.6 g/dL (12.0-16.0); LYMPHOCYTES % (AUTO) 9.2 % (21.0-51.0); MEAN CORPUSCULAR HEMOGLOBIN 22.2 pg (27.0-34.0); MEAN CORPUSCULAR HGB CONC 31.9 g/dL (33.0-35.0); MEAN CORPUSCULAR VOLUME 69.6 fL (80.0-100.0); MEAN PLATELET VOLUME 11.9 fL (7.4-11.0); MONOCYTES # (AUTO) 0.5 x10^3/uL (0.3-0.8); MONOCYTES % (AUTO) 4.6 % (0.0-13.0); NEUTROPHILS # (AUTO) 9.4 x10^3/uL (2.2-4.8); NEUTROPHILS % (AUTO) 85.5 % (42.0-75.0); PLATELET COUNT 171 X10^3/uL (150.0-450.0); RED BLOOD COUNT 4.75 X10^6/uL (3.5-5.4); RED CELL DISTRIBUTION WIDTH 15.2 % (11.6-16.5); WHITE BLOOD COUNT 10.9 X10^3/uL (3.6-10.0)
[2024-07-17 06:50] LABS: ALANINE AMINOTRANSFERASE 89 Units/L (12-78); ALBUMIN 2.5 g/dL (3.4-5.0); ALKALINE PHOSPHATASE 135 Units/L (46-116); ASPARTATE AMINO TRANSFERASE 138 Units/L (15-37); BLOOD UREA NITROGEN 15 mg/dL (7-18); CALCIUM 8.5 mg/dL (8.5-10.1); CARBON DIOXIDE 22.5 mmol/L (21-32); CHLORIDE 107 mmol/L (98-107); COR CA(FOR HYPOALB) 9.7 mg/dL (8.5-10.1); COR NA(FOR HYPERGLY) 140 mmol/L (136-145); CREATININE 0.97 mg/dL (0.55-1.02); GLUCOSE 156 mg/dL (65-99); MAGNESIUM 2.5 mg/dL (2.0-2.9); POTASSIUM 3.6 mmol/L (3.5-5.1); SODIUM 139 mmol/L (136-145); TOTAL PROTEIN 7.6 g/dL (6.4-8.2); eGFR NON BLACK RACES > 60 (>60)
[2024-07-17 07:18] LABS: HYPOCHROMASIA 1+; MICROCYTOSIS 1+; PLATELET MORPHOLOGY COMMENT NORMAL (NORMAL); TARGET CELLS SLIGHT
[2024-07-17] MEDS ORDERED: CONSULT PHARMACY - POTASSIUM & MAGNESIUM XX SCH (08:00)
[2024-07-17] MEDS ORDERED: ROCEPHIN VIAL 1 GRAM 1 G in NS 100 ML IV 100 ML IV SCH (09:00)
[2024-07-17 12:03] VITALS: RESP 23
[2024-07-17] MEDS: NS 1,000 ML IV 1,000 ML IV SCH (12:04)
[2024-07-17] MEDS: LEXAPRO ONE (12:05)
[2024-07-17 14:41] VITALS: BP 117/60; PULSE 83; TEMP 98
== END 2024-07-17 14:50 | disposition home or self-care (01) ==
LOC: ICU 22:20 → ER 22:20 → ICU 07-16 04:30
PROVIDERS: ADMIT Internal Medicine; ATTEND Obstetrics & Gynecology Obstetrics
DX: I82.412 Acute embolism and thrombosis of left femoral vein; R06.02 Shortness of breath; I82.432 Acute embolism and thrombosis of left popliteal vein; E87.1 Hypo-osmolality and hyponatremia; E83.42 Hypomagnesemia; R60.0 Localized edema; R79.1 Abnormal coagulation profile; M79.652 Pain in left thigh; Z16.23 Resistance to quinolones and fluoroquinolones; Z16.29 Resistance to other single specified antibiotic; E87.6 Hypokalemia; R41.0 Disorientation, unspecified; I10 Essential (primary) hypertension; E86.0 Dehydration; Z16.12 Extended spectrum beta lactamase (ESBL) resistance; B96.29 Other Escherichia coli [E. coli] as the cause of diseases classified elsewhere; R26.89 Other abnormalities of gait and mobility; Z03.818 Encounter for observation for suspected exposure to other biological agents ruled out; A02.8 Other specified salmonella infections; R53.1 Weakness; N39.0 Urinary tract infection, site not specified